=== PATIENT | female | born 1975 | race Caucasian/White ===

== ENCOUNTER → 2019-06-07 21:33 | Outpatient (CLI) | payer OTHER, SELFPAY ==
[2019-06-07 17:24] VITALS: BMI 26.3
[2019-06-07 21:37] LABS: Absolute Lymphocyte Count 2.67 X10^3/uL (0.83-4.51); Absolute Neutrophil Count 4.8 X10^3/uL (2.0-7.7); Basophil# 0.05 X10^3/uL; Basophil% 0.6 % (0-1); Eosinophil# 0.06 X10^3/uL; Eosinophils% 0.7 % (0-5); Hematocrit 41.5 % (37-47); Hemoglobin 13.8 g/dL (12.0-15.0); Lymphocyte # 2.67 X10^3/ul (4.0); Lymphocyte % 32.9 % (19-41); Mean Corp Hgb Conc 33.3 g/dL (32-36); Mean Corpuscular Hgb 31.3 pg (27.0-32.0); Mean Corpuscular Volume 94.1 fL (81-99); Monocyte# 0.48 X10^3/uL; Monocyte% 5.9 % (0-10); NRBC Flagged by Analyzer 0 % (0-5); Neutrophil # 4.83 X10^3/uL (2.7-7.7); Neutrophil % 59.7 % (47-70); Platelet Count 260 K/mm3 (150-450); RBC Distribution Width CV 12.5 % (11.6-14.6); RBC Distribution Width SD 43.2 fl (35.1-43.9); Red Blood Count 4.41 M/mm3 (4.2-5.4); White Blood Count 8.1 K/mm3 (4.4-11.0)
[2019-06-14 09:48] LABS: EBV Acute VCA IgM < 36.0 U/mL (0.0-35.9); EBV Early Antigen IgG <9.0 U/mL (0.0-8.9); EBV Nuclear Antigen IgG < 18.0 U/mL (0.0-17.9); EBV-VCA IgG > 600.0 U/mL (0.0-17.9)
== END ==
PROVIDERS: Referring Provider Nurse Practitioner; Visit Provider Nurse Practitioner
DX: J02.9 Acute pharyngitis, unspecified (principal); R53.83 Other fatigue
CPT/HCPCS: 85025; 86663; 86664; 86665

== ENCOUNTER → 2020-05-05 | Outpatient (CLI) | payer BC, SELFPAY ==
[2019-06-07 17:24] VITALS: BMI 26.3
[2020-05-05 21:23] LABS: Absolute Lymphocyte Count 2.24 X10^3/uL (0.83-4.51); Absolute Neutrophil Count 3.7 X10^3/uL (2.0-7.7); Basophil# 0.05 X10^3/uL; Basophil% 0.8 % (0-1); Eosinophil# 0.06 X10^3/uL; Eosinophils% 0.9 % (0-5); Hematocrit 44.3 % (37-47); Hemoglobin 14.5 g/dL (12.0-15.0); Lymphocyte # 2.24 X10^3/ul (4.0); Lymphocyte % 34.5 % (19-41); Mean Corp Hgb Conc 32.7 g/dL (32-36); Mean Corpuscular Hgb 30.5 pg (27.0-32.0); Mean Corpuscular Volume 93.3 fL (81-99); Mean Platelet Vol. 9.7 fl (6.2-12.0); Monocyte# 0.45 X10^3/uL; Monocyte% 6.9 % (0-10); NRBC Flagged by Analyzer 0 % (0-5); Neutrophil # 3.69 X10^3/uL (2.7-7.7); Neutrophil % 56.7 % (47-70); Platelet Count 280 K/mm3 (150-450); RBC Distribution Width CV 12.2 % (11.6-14.6); RBC Distribution Width SD 42.2 fl (35.1-43.9); Red Blood Count 4.75 M/mm3 (4.2-5.4); White Blood Count 6.5 K/mm3 (4.4-11.0)
[2020-05-05 21:52] LABS: AST(SGOT) 15 U/L (15-37); Alanine Aminotransfer ALT/SGPT 22 U/L (13-56); Albumin, Serum 3.9 g/dL (3.2-5.0); Alkaline Phosphatase 70 U/L (45-117); Anion Gap 3 (5-15); BUN 14 mg/dL (7-18); BUN/Creat Ratio 13.6 RATIO (10-20); Calcium,Total 9.1 mg/dL (8.5-10.1); Chloride 103 mmol/L (98-107); Cholesterol 297 mg/dL (200); Creatinine, Serum 1.03 mg/dL (0.55-1.02); EST Glomerular Filtration Rate 61 mL/min (>60); Est Glom Filt Rate - Afr Amer 74 mL/min (>60); Glucose 93 mg/dL (74-106); High Density Lipoprotein 92 mg/dL; Potassium 4.6 mmol/L (3.5-5.1); Protein, Total 7.9 g/dL (6.4-8.2); Sodium Level 134 mmol/L (136-145); Thyroid Stim Hormone (TSH) 1.84 uIU/mL (0.358-3.74); Triglycerides 124 mg/dL; Very Low Density Lipoprotein 25 mg/dL (5-40)
== END | disposition home or self-care (01) ==
PROVIDERS: Referring Provider Nurse Practitioner; Visit Provider Nurse Practitioner
DX: Z00.00 Encounter for general adult medical examination without abnormal findings (principal); L65.9 Nonscarring hair loss, unspecified
CPT/HCPCS: 80053; 80061; 84443; 85025

== ENCOUNTER → 2021-03-22 | Outpatient (CLI) | payer BC, SELFPAY ==
[2021-03-22 21:34] LABS: Absolute Lymphocyte Count 1.17 X10^3/uL (0.83-4.51); Absolute Neutrophil Count 1.8 X10^3/uL (2.0-7.7); Basophil# 0.03 X10^3/uL; Basophil% 0.8 % (0-1); Eosinophil# 0.02 X10^3/uL; Eosinophils% 0.6 % (0-5); Hematocrit 42.9 % (37-47); Hemoglobin 13.9 g/dL (12.0-15.0); Lymphocyte # 1.17 X10^3/ul (0.83-4.51); Lymphocyte % 33.1 % (19-41); Mean Corp Hgb Conc 32.4 g/dL (32-36); Mean Corpuscular Volume 92.7 fL (81-99); Mean Platelet Vol. 9.9 fl (6.2-12.0); Monocyte# 0.48 X10^3/uL; Monocyte% 13.6 % (0-10); NRBC Flagged by Analyzer 0 % (0-5); Neutrophil # 1.83 X10^3/uL (2.7-7.7); Neutrophil % 51.9 % (47-70); Platelet Count 225 K/mm3 (150-450); RBC Distribution Width CV 12.5 % (11.6-14.6); RBC Distribution Width SD 42.4 fl (35.1-43.9); Red Blood Count 4.63 M/mm3 (4.2-5.4); White Blood Count 3.5 K/mm3 (4.4-11.0)
[2021-03-22 21:48] LABS: ALB/GLOB Ratio 0.9 RATIO (0.9-2.4); AST(SGOT) 13 U/L (15-37); Alanine Aminotransfer ALT/SGPT 23 U/L (13-56); Albumin, Serum 3.7 g/dL (3.2-5.0); Alkaline Phosphatase 76 U/L (45-117); Anion Gap 5 (5-15); BUN 8 mg/dL (7-18); Calcium,Total 8.9 mg/dL (8.5-10.1); Chloride 104 mmol/L (98-107); Cholesterol 275 mg/dL (200); Creatinine, Serum 0.67 mg/dL (0.55-1.02); EST Glomerular Filtration Rate 101 mL/min (>60); Est Glom Filt Rate - Afr Amer 122 mL/min (>60); Glucose 94 mg/dL (74-106); High Density Lipoprotein 93 mg/dL; Potassium 4.4 mmol/L (3.5-5.1); Protein, Total 7.7 g/dL (6.4-8.2); Sodium Level 137 mmol/L (136-145); Triglycerides 93 mg/dL; Very Low Density Lipoprotein 19 mg/dL (5-40)
[2021-03-22 21:59] LABS: Hemoglobin A1c 5.1 % (3.8-5.6)
== END | disposition home or self-care (01) ==
PROVIDERS: Referring Provider Nurse Practitioner; Visit Provider Nurse Practitioner
DX: Z00.00 Encounter for general adult medical examination without abnormal findings (principal)
CPT/HCPCS: 80053; 80061; 83036; 85025

== ENCOUNTER → 2023-03-22 | Outpatient (CLI) | payer BC, SELFPAY ==
[2023-03-22 21:07] LABS: Absolute Lymphocyte Count 2.64 X10^3/uL (0.83-4.51); Absolute Neutrophil Count 6.3 X10^3/uL (2.0-7.7); Basophil# 0.05 X10^3/uL; Basophil% 0.5 % (0-1); Eosinophil# 0.04 X10^3/uL; Eosinophils% 0.4 % (0-5); Hematocrit 44.2 % (37-47); Hemoglobin 14.5 g/dL (12.0-15.0); Lymphocyte # 2.64 X10^3/ul (0.83-4.51); Lymphocyte % 27.3 % (19-41); Mean Corp Hgb Conc 32.8 g/dL (32-36); Mean Corpuscular Hgb 30.3 pg (27.0-32.0); Mean Corpuscular Volume 92.3 fL (81-99); Mean Platelet Vol. 10.1 fl (6.2-12.0); Monocyte# 0.59 X10^3/uL; Monocyte% 6.1 % (0-10); NRBC Flagged by Analyzer 0 % (0-5); Neutrophil # 6.33 X10^3/uL (2.7-7.7); Neutrophil % 65.4 % (47-70); Platelet Count 315 K/mm3 (150-450); RBC Distribution Width CV 12.4 % (11.6-14.6); RBC Distribution Width SD 42.7 fl (35.1-43.9); Red Blood Count 4.79 M/mm3 (4.2-5.4); White Blood Count 9.7 K/mm3 (4.4-11.0)
[2023-03-22 21:30] LABS: ALB/GLOB Ratio 0.9 RATIO (0.9-2.4); AST(SGOT) 12 U/L (15-37); Alanine Aminotransfer ALT/SGPT 20 U/L (13-56); Albumin, Serum 3.9 g/dL (3.2-5.0); Alkaline Phosphatase 71 U/L (45-117); Anion Gap 4 (5-15); BUN 11 mg/dL (7-18); BUN/Creat Ratio 14.6 RATIO (10-20); Calcium,Total 9.4 mg/dL (8.5-10.1); Chloride 102 mmol/L (98-107); Cholesterol 257 mg/dL (200); Creatinine, Serum 0.76 mg/dL (0.55-1.02); EST Glomerular Filtration Rate 87 mL/min (>60); Est Glom Filt Rate - Afr Amer 105 mL/min (>60); Globulin 4.3 g/dL (2.2-4.2); Glucose 85 mg/dL (74-106); High Density Lipoprotein 87 mg/dL; Potassium 4.3 mmol/L (3.5-5.1); Protein, Total 8.2 g/dL (6.4-8.2); Sodium Level 135 mmol/L (136-145); Thyroid Stim Hormone (TSH) 4.39 uIU/mL (0.358-3.74); Triglycerides 98 mg/dL; Very Low Density Lipoprotein 20 mg/dL (5-40)
[2023-03-24 14:10] LABS: EBV Acute VCA IgM < 36.0 U/mL (0.0-35.9); EBV Nuclear Antigen IgG < 18.0 U/mL (0.0-17.9); EBV-VCA IgG > 600.0 U/mL (0.0-17.9)
== END | disposition home or self-care (01) ==
PROVIDERS: Visit Provider Nurse Practitioner
DX: Z00.00 Encounter for general adult medical examination without abnormal findings (principal); B27.00 Gammaherpesviral mononucleosis without complication; E03.9 Hypothyroidism, unspecified
CPT/HCPCS: 80053; 80061; 84443; 85025; 86664; 86665

== ENCOUNTER → 2023-04-24 | Outpatient (CLI) | payer BC, SELFPAY ==
[2023-04-24 21:55] LABS: Thyroid Stim Hormone (TSH) 1.08 uIU/mL (0.358-3.74)
[2023-04-26 14:09] LABS: EBV Acute VCA IgM < 36.0 U/mL (0.0-35.9); EBV Nuclear Antigen IgG < 18.0 U/mL (0.0-17.9); EBV-VCA IgG > 600.0 U/mL (0.0-17.9)
== END | disposition home or self-care (01) ==
PROVIDERS: Visit Provider Nurse Practitioner
DX: B27.00 Gammaherpesviral mononucleosis without complication (principal); E03.9 Hypothyroidism, unspecified
CPT/HCPCS: 84443; 86664; 86665

== ENCOUNTER → 2024-03-26 | Outpatient (CLI) | payer BC, SELFPAY ==
[2024-03-26 22:20] LABS: Absolute Lymphocyte Count 2.38 X10^3/uL (0.83-4.51); Absolute Neutrophil Count 3.5 X10^3/uL (2.0-7.7); Basophil# 0.04 X10^3/uL; Basophil% 0.6 % (0-1); Eosinophil# 0.05 X10^3/uL; Eosinophils% 0.8 % (0-5); Hematocrit 41.3 % (37-47); Hemoglobin 13.7 g/dL (12.0-15.0); Lymphocyte # 2.38 X10^3/ul (0.83-4.51); Mean Corp Hgb Conc 33.2 g/dL (32-36); Mean Corpuscular Hgb 29.8 pg (27.0-32.0); Mean Platelet Vol. 10.5 fl (6.2-12.0); Monocyte# 0.43 X10^3/uL; Monocyte% 6.7 % (0-10); NRBC Flagged by Analyzer 0 % (0-5); Neutrophil # 3.53 X10^3/uL (2.7-7.7); Neutrophil % 54.7 % (47-70); Platelet Count 283 K/mm3 (150-450); RBC Distribution Width CV 12.7 % (11.6-14.6); RBC Distribution Width SD 42.1 fl (35.1-43.9); Red Blood Count 4.59 M/mm3 (4.2-5.4); White Blood Count 6.4 K/mm3 (4.4-11.0)
[2024-03-26 22:48] LABS: ALB/GLOB Ratio 0.9 RATIO (0.9-2.4); AST(SGOT) 14 U/L (15-37); Alanine Aminotransfer ALT/SGPT 20 U/L (13-56); Albumin, Serum 3.8 g/dL (3.2-5.0); Alkaline Phosphatase 69 U/L (45-117); Anion Gap 8 (5-15); BUN 20 mg/dL (7-18); BUN/Creat Ratio 27.7 RATIO (10-20); Calcium,Total 9.9 mg/dL (8.5-10.1); Chloride 104 mmol/L (98-107); Cholesterol 290 mg/dL (200); Creatinine, Serum 0.72 mg/dL (0.55-1.02); EST Glomerular Filtration Rate 91 mL/min (>60); Est Glom Filt Rate - Afr Amer 110 mL/min (>60); Globulin 4.3 g/dL (2.2-4.2); Glucose 95 mg/dL (74-106); High Density Lipoprotein 75 mg/dL; Potassium 4.1 mmol/L (3.5-5.1); Protein, Total 8.1 g/dL (6.4-8.2); Sodium Level 136 mmol/L (136-145); Triglycerides 140 mg/dL; Very Low Density Lipoprotein 28 mg/dL (5-40)
== END | disposition home or self-care (01) ==
PROVIDERS: Referring Provider Nurse Practitioner; Visit Provider Nurse Practitioner
DX: Z00.00 Encounter for general adult medical examination without abnormal findings (principal); E03.9 Hypothyroidism, unspecified
CPT/HCPCS: 80053; 80061; 84443; 85025

== ENCOUNTER → 2025-03-24 | Outpatient (CLI) | payer BC, SELFPAY ==
--- OUTSIDE RECORDS SUMMARY | 2025-03-24 22:25 | XMS RPT_ITS | CCD ---
Author Organization [facility] Care Team Providers Care Infectious Diseases Physician Name Role Phone Chad KESSLER.Ann LAM Primary Care Provide r YoanaBhavin serna DO Primary Care Provider [phone] Chad TEAM FACILITATOR, Ann Referring Unavailable Chad TEAM FACILITATOR, Ann Attending Unavailable Chad TEAM FACILITATOR, Ann Attending Unavailable AMBER DOWD Attending Unavailable YOANA, BHAVIN Primary Care Unavailable YEROPOLI, SEVASTI Attending Unavailable YOANA, BHAVIN Primary Care Unavailable YEROPOLI, SEVASTI Attending Unavailable YOANA, BHAVIN Primary Care Unavailable YOANA, BHAVIN Referring Unavailable YOANA, BHAVIN Primary Care Unavailable YOANA, BHAVIN Attending Unavailable PENELOPE, AMBER Attending Unavailable YOANA, BHAVIN Primary Care Unavailable Generic Provider MD, No Assigned Pcp Primary Car e Provider Unavailable HOWDESHELL, JD Referring Unavailable GENERIC PROVIDER, NO ASSIGNED PCP Primary Care Unavailable HOWDESHELL, JD Referring Unavailable GENERIC PROVIDER, NO ASSIGNED PCP Primary Care Unavailable HOWDESHELL, JD Referring Unavailable GENERIC PROVIDER, NO ASSIGNED PCP Primary Care Unavailable HOWDESHELL, JD Referring Unavailable GENERIC PROVIDER, NO ASSIGNED PCP Primary Care Unavailable HOWDESHELL, JD Referring Unavailable GENERIC PROVIDER, NO ASSIGNED PCP Primary Care Unavailable HOWDESHELL, JD Referring Unavailable GENERIC PROVIDER, NO ASSIGNED PCP Primary Care Unavailable Allergies Allergy Classification Reported Allergen(s) Allergy Type Date of Onset Reaction(s) Facility (1 source) ALLERGIES NOT ON FILE; Translations: [ALLERGIES NOT ON FILE] Propensity to adverse reactions (disorder) [facility] Medications Current Medications Medication Drug Class(es) Dates Sig (Normalized) Sig (Original) b complex vitamins capsule (20 sources) take 1 capsule by mo [facility] once daily b complex vitamins capsule Take 1 capsule by mouth daily. Active take 1 capsule by mouth once ramón ly b complex vitamins capsule Take 1 capsule by mouth daily. 0 Active chaste zhang extract (1 source) Start: 03-21-2018 chasteberry Active PO March 21, 2018 12:00am cholecalciferol 0.05 mg oral capsule (20 sources) Vitamin D cholecalciferol (Vitamin D-3) 50 MCG (2000 UT) capsule Take by mouth. Active Lactobacillus Combination No.8 (Adult Probiotic) 3 billion cell capsule (1 source) Start: 03-21-2018 take 3 capsules by mouth once daily Lactobacillus Combination No.8 (Adult Probiotic) 3 billion cell capsule Active 3000 MMU CELLS PO DAILY March 21, 2018 12:00am levothyroxine sodium 0.05 mg oral tablet (2 sources) l-Thyroxine Start: 03-23-2023 End: 04-25-2023 take 50 ug by mouth once daily Levothyroxine Active 50 MCG PO DAILY 90 April 25, 2023 10:12am Multivitamin preparation (1 source) Start: 03-21-2018 take 1 tablet by mouth once daily Multivitamin Active 1 TABLET PO DAILY March 21, 2018 12:00am Probiotic Product (PROBIOTIC DAILY PO) (20 sources) Probiotic Produc t (PROBIOTIC DAILY PO) Take by mouth. Active Probiotic Produc t (PROBIOTIC DAILY PO) Take by mouth. 0 Active progesterone 100 mg oral capsule (20 sources) Progesterone Start: 09-30-2024 take 2 capsules by mouth once daily progesterone (Prometrium) 100 MG capsule Indications: Abnormal uterine bleeding (AUB) Take 2 capsules (200 mg) by mouth daily. 60 capsule 2 09/30/2024 Active Start: 12-07-2023 End: 07-16-2024 take 2 capsules by mouth once daily progesterone (Prometrium) 100 MG capsule Indications: Abnormal uterine bleeding (AUB) Take 2 capsules (200 mg) by mouth daily. 60 capsule 3 12/07/2023 07/16/2024 Discontinued Start: 10-28-2023 End: 11-15-2023 take 2 capsules by mouth once daily progesterone (Prometrium) 100 MG capsule Indications: Abnormal uterine bleeding (AUB) Take 2 capsules (200 mg) by mouth daily. 30 capsule 3 11/15/2023 Active Start: 11-02-2022 End: 04-12-2023 take 2 tablets by mouth once daily progesterone (Prometrium) 100 MG capsule Indications: Abnormal uterine and vaginal bleeding, unspecified TAKE 2 TABLETS BY MOUTH DAILY 180 capsule 0 11/02/2022 11/09/2022 Discontinued (Reorder) Start: 05-09-2022 End: 11-15-2023 take 1 capsule by mouth once daily progesterone 200 MG capsule Indications: Abnormal uterine bleeding (AUB) Take 1 capsule (200 mg) by mouth daily. 90 capsule 3 11/09/2022 11/15/2023 Discontinued Vitamin B Complex (B Complex 1) tablet (1 source) Start: 03-21-2018 take 1 tablet by mouth once daily Vitamin B Complex (B Complex 1) tablet Active 1 TABLET PO DAILY March 21, 2018 12:00am Completed/Discontinued Medications Medication Drug Class(es) Dates Sig (Normalized) Sig (Original) amoxicillin 80 mg/ml oral suspension (2 sources) Penicillin-class Antibacterial Start: 03-21-2018 End: 03-23-2021 take 1000 mg by mouth twice daily Amoxicillin Discontinued 1000 MG PO TWICE A DAY 250 September 14, 2018 6:34pm March 23, 2021 12:57pm azithromycin 250 mg oral tablet (1 source) Macrolide Antimicrobial Start: 05-09-2022 End: 05-14-2022 Azithromycin Discontinued 250 MG PO daily 6 5 May 09, 2022 12:00am May 14, 2022 12:08am 2 po qd for 1 day then 1 po qd for 4 days with food or after eating cefdinir 50 mg/ml oral suspension (1 source) Cephalosporin Antibacterial Start: 06-07-2019 End: 03-23-2021 take 300 mg by mouth twice daily Cefdinir Discontinued 300 MG PO TWICE A DAY 120 June 07, 2019 1:00am March 23, 2021 12:57pm KELP ORAL (2 sources) KELP ORAL Take b y mouth. 0 Active Comment on above: Take by mouth. MULTI-VITAMIN ORAL (2 sources) MULTI-VITAMIN OR AL Take by mouth. 0 Active Comment on above: Take by mouth. Multiple Vitamin (MULTIVITAMIN ADULT PO) (20 sources) End: 11-27-2024 Multiple Vitamin (MULTIVITAMIN ADULT PO) Take by mouth. 11/27/2024 Discontinued (Therapy completed) Multiple Vitamin (MULTIVITAMIN ADULT PO) Take by mouth. Active Multiple Vitamin (MULTIVITAMIN ADULT PO) Take by mouth. 0 Active Vitamin B Complex (2 sources) VITAMIN B COMPLE X (B COMPLEX ORAL) Take by mouth. 0 Active Comment on above: Take by mouth. Problems Active Problems Problem Classification Problem Date Documented Date Episodic/Chronic Chronic obstructive pulmonary disease and bronchiectasis (1 source) Bronchitis; Translations: [Bronchitis, not specified as acute or chronic] 06-07-2019 Episodic Disorders of lipid metabolism (4 sources) Hypercholesterolemia; Translations: [Pure hypercholesterolemia, unspecified] Onset: 12-02-2024 12-02-2024 Chronic Fracture of lower limb (6 sources) Stress fracture of left tibia; Translations: [Stress fracture, left tibia, initial encounter for fracture] Onset: 11-27-2024 11-22-2023 Episodic Malaise and fatigue (1 source) Fatigue; Translations: [Chronic fatigue, unspecified] 12-13-2023 Chronic Malaise and fatigue (1 source) Fatigue; Translations: [Other fatigue] 06-07-2019 Episodic Menopausal disorders (3 sources) Perimenopausal state; Translations: [Menopausal and female climacteric states] Onset: 12-02-2024 12-02-2024 Chronic Nutritional deficiencies (1 source) Vitamin D deficiency; Translations: [Vitamin D deficiency, unspecified] 11-22-2023 Chronic Other female genital disorders (6 sources) Abnormal uterine bleeding; Translations: [Abnormal uterine and vaginal bleeding, unspecified] Onset: 11-27-2024 Chronic Other female genital disorders (1 source) Abnormal uterine and vaginal bleeding, unspecified; Translations: [Abnormal uterine and vaginal bleeding, unspecified] Onset: 11-27-2024 Chronic Other non-traumatic joint disorders (3 sources) Acute ankle pain; Translations: [Pain in left ankle and joints of left foot] 11-22-2023 Episodic Other screening for suspected conditions (not mental disorders or infectious disease) (17 sources) Mammography abnormal; Translations: [Other abnormal and inconclusive findings on diagnostic imaging of breast] Onset: 11-27-2024 Episodic Other upper respiratory infections (1 source) Maxillary sinusitis; Translations: [Chronic maxillary sinusitis] 03-21-2018 Chronic Other upper respiratory infections (2 sources) Acute ethmoidal sinusitis; Translations: [Acute ethmoidal sinusitis, unspecified] 06-07-2019 Episodic Otitis media and related conditions (1 source) Acute left otitis media; Translations: [Otitis media, unspecified, left ear] 03-21-2018 Episodic Thyroid disorders (7 sources) Hypothyroidism; Translations: [Hypothyroidism, unspecified] Onset: 12-22-2023 04-25-2023 Chronic Unclassified (1 source) Low back pain, unspecified; Translations: [Low back pain, unspecified] Onset: 04-13-2022 Unclassified (2 sources) Patient encounter status 11-27-2024 Past or Other Problems Problem Classification Problem Date Documented Date Episodic/Chronic Abdominal pain (2 sources) Right lower quadrant pain; Translations: [Right lower quadrant pain] Onset: 06-20-2016 06-20-2016 Episodic Lymphadenitis (6 sources) Anterior cervical lymphadenopathy; Translations: [Localized enlarged lymph nodes] Onset: 12-22-2023 12-13-2023 Episodic Other connective tissue disease (2 sources) Pain in lower limb; Translations: [Leg Pain] Onset: 01-12-2024 Episodic Unclassified (1 source) knee cap fx 02-28-2022 Unclassified (1 source) problems with irrelar menses for the past year, 02-28-2022 Viral infection (2 sources) Heterophil-positive mononucleosis syndrome; Translations: [Gammaherpesviral mononucleosis without complication] Onset: 04-28-2023 03-22-2023 Episodic Results Test Name Value Interpretation Reference Range Facility BI TRANSFER OF OUTSIDE FILMS on 02-06-2025 BI TRANSFER OF OUTSIDE FILMS Outside images for comparison or treatment purposes, not interpreted by Radiologists. [facility] Comment on above: Order Comment: 2022 [facility] BREAST [facility]TD [place] BI TRANSFER OF OUTSIDE FILMS Outside images for comparison or treatment purposes, not interpreted by Radiologists. [facility] Comment on above: Order Comment: 2022 [facility] DIAG [place] BI TRANSFER OF OUTSIDE FILMS Outside images for comparison or treatment purposes, not interpreted by Radiologists. [facility] Comment on above: Order Comment: 06/14 US BREAST LTD RT [place] BI TRANSFER OF OUTSIDE FILMS Outside images for comparison or treatment purposes, not interpreted by Radiologists. [facility] Comment on above: Order Comment: 2021 US BREAST LTD RT [place] BI TRANSFER OF OUTSIDE FILMS Outside images for comparison or treatment purposes, not interpreted by Radiologists. Normal [facility] Comment on above: Order Comment: 2021 [facility] Study Interpretation of outs joselyn studyon 02-06-2025 Outside images for comparison or treatment purposes, not interpreted by Radiologists. IMAGING Outside images for comparison or treatment purposes, not interpreted by Radiologists. IMAGING Outside images for comparison or treatment purposes, not interpreted by Radiologists. IMAGING Outside images for comparison or treatment purposes, not interpreted by Radiologists. IMAGING Outside images for comparison or treatment purposes, not interpreted by Radiologists. IMAGING BI MAMMO BILATERAL SCREENING TOMOSYNTHESISon 01-29-2025 BI MAMMO BILATERAL SCREENING TOMOSYNTHESIS Interpreted By: Alex Holloway, STUDY: BI MAMMO BILATERAL SCREENING TOMOSYNTHESIS; 01/29/2025 9:37 am ACCESSION NUMBER(S): [id number] ORDERING CLINICIAN: INTERFACE UNSPECIFIELDPROVIDER INDICATION: Screening. ,Z12.31 Encounter for screening mammogram for malignant neoplasm of breast COMPARISON: 01/24/2023 and 11/16/2021 FINDINGS: 2D and tomosynthesis images were reviewed at 1 mm slice thickness. Density: The breasts are heterogeneously dense, which may obscure small masses. Bilateral benign circumscribed masses are seen. No suspicious masses or calcifications are identified. IMPRESSION: No mammographic evidence of malignancy. BI-RADS CATEGORY: BI-RADS Category: 2 Benign. Recommendation: Annual Screening. Recommended Date: 1 Year. Laterality: Bilateral. For any future breast imaging appointments, please call [phone] ([phone]). MACRO: None Signed by: Alex Holloway 02/06/2025 4:31 PM Dictation workstation: [id number] [facility] 37on 12-02-2024 37 [facility] Office Visiton 11-27-2024 Follow-up visit [id number] Dana Kamara 1975 F Date Provider Department Center 11/27/2024 [id number] DEE [facility] Offi Family History Problem Relation Age of Onset No Known Problems Father Hypertension Mother Arthritis Mother Rheumatologic disease Mother Arthritis Sister Family Status - Relation Status Age at Father Alive Mother Alive Sister Level of Service:25096 NE PERIODIC PREVENTIVE MED EST PATIENT 40-64YRS Reason for Visit and Comments: Annual Exam [83] Normal [facility] Progress Noteon 11-27-2024 Progress Note ?A rate supervisor was offered to be present during her exam. The patient: Declined. Normal [facility] Progress Note Cadence Kamara 11/27/2024 49 y.o. Primary Care Physician: Bhavin Rossi DO Chief Complaint Patient presents with Annual Exam HPI : Cadence Kamara is a 49 y.o. female here for annual exam Was diagnosed with hypothyroid. 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 Had side effects and stopped it. Repeat labs normal CBC and CMP HgbA1c normal 02/2024 Lipids elevated 02/2024, had just started Keto. LDL was 187 _ Gynecologic History: Patient's last menstrual period was 11/20/2024 (exact date). Taking Prometrium 200 mg 21 days on and 7 days off. Menses spacing out In the last 6 months: February, June, July, October Sometimes heavy and sometime light Cramping Pap last year with endometrial cells, US ordered but was not done See WANTED [employer] message for other sx: - weight loss with keto diet and now weight gain. - hot flashes and night sweats - fatigue - stress fracture ( atraumatic) of tibia, still healing ( would like DEXA) - knee and shoulder pain - brain fog, - anxiety/emotional - poor sleep EMB 2020 ENDOMETRIAL BIOPSY - FRAGMENTS OF SECRETORY ENDOMETRIUM NEGATIVE FOR HYPERPLASIA OR MALIGNANCY Contraception: Condoms OB History Para Term AB Living 3 3 2 1 3 SAB IAB Ectopic Multiple Live Births 3 # Outcome Date GA Lbr Matthew/2nd Weight Sex Type Anes PTL Lv 3 Term Vag-Spont YESSENIA 2 Term Vag-Spont YESSENIA 1 Vag-Spont YESSENIA Preventative Health Testing: Date of Last Pap Smear: 07/2020 neg pap and HPV Abnormal Pap Smear History: none Date of Last Mammogram: Hx of abnormal- declines continued diagnostic imaging due to cost Would like screening Date of Last Colonoscopy: none- ok with referral __ Past Medical History: Diagnosis Date Abnormal Pap smear of cervix October 2023. Have ultrasound 12/26 Hypothyroidism Past Surgical History: Procedure Laterality Date FRACTURE SURGERY Fractured knee cap 03/2004 KNEE SURGERY Right x 2 Family History Problem Relation Name Age of Onset No Known Problems Father Hypertension Mother Rosi Castañeda Arthritis Mother Rosi Castañeda Rheumatologic disease Mother Rosi Castañeda Arthritis Sister Neema Galindo Social History Socioeconomic History Marital status: Spouse name: Not on file Number of children: Not on file Years of education: Not on file Highest education level: Not on file Occupational History Not on file Tobacco Use Smoking status: Never Smokeless tobacco: Never Vaping Use Vaping status: Never Used Substance and Sexual Activity Alcohol use: Not Currently Alcohol/week: 1.0 standard drink of alcohol Types: 1 Standard drinks or equivalent per week Drug use: No Sexual activity: Yes Partners: Male control/protection: Condom Male Other Topics Concern Not on file Social History Narrative Not on file Social Drivers of Health Financial Resource Strain: Low Risk (12/13/2023) Overall Financial Resource Strain (CARDIA) Difficulty of Paying Living Expenses: Not hard at all Food Insecurity: No Food Insecurity (12/13/2023) Hunger Vital Sign Worried About Running Out of Food in the Last Year: Never true Ran Out of Food in the Last Year: Never true Transportation Needs: No Transportation Needs (12/13/2023) PRAPARE - Transportation Lack of Transportation (Medical): No Lack of Transportation (Non-Medical): No Physical Activity: Sufficiently Active (12/13/2023) Exercise Vital Sign Days of Exercise per Week: 5 days Minutes of Exercise per Session: 30 min Stress: Stress Concern Present (12/13/2023) [place] [employer] - Occupational Stress Questionnaire Feeling of Stress : To some extent Social Connections: Moderately Integrated (12/13/2023) Social Connection and Isolation Panel [NHANES] Frequency of Communication with Friends and Family: Three times a week Frequency of Social Gatherings with Friends and Family: Twice a week Attends Bahai Services: More than 4 times per year Active Member of Clubs or Organizations: No Attends Club or Organization Meetings: Never Marital Status: Intimate Partner Violence: Not At Risk (12/13/2023) Humiliation, Afraid, Rape, and Kick questionnaire Fear of Current or Ex-Partner: No Emotionally Abused: No Physically Abused: No Sexually Abused: No Housing Stability: Unknown (12/13/2023) Housing Stability Vital Sign Unable to Pay for Housing in the Last Year: No Number of Places Lived in the Last Year: Not on file Unstable Housing in the Last Year: No MEDICATIONS: Current Outpatient Medications Medication Sig Dispense Refill b complex vitamins capsule Take 1 capsule by mouth daily. cholecalciferol (Vitamin D-3) 50 MCG (2000 UT) capsule Take by mouth. Probiotic Product (PROBIOTIC DAILY PO) Take by mouth. progesterone (Prometrium) 100 MG capsule Take 2 capsules (200 mg) by mouth elissa (more content not included)... Normal [facility] 36on 08-26-2024 36 Noted. Normal [place] [address]on 08-08-2024 36 We have been unable to reach your patient to schedule their testing. Test Name: US Neck 1st Attempt: 1st attempt, via WUT, 07/02/24-BD 2nd Attempt: 2nd attempt - called and LVM - TE to office - 08/08/24 AAD Normal [facility] 36on 07-15-2024 36 Last visit 10/2023. R x pended. Normal [facility] CBC W/Diff, Automatedon 08- Absolute Lymph 2.38 X10 3/uL Normal 0.83-4.51 [facility] Comment on above: Performed By: #### L 500.4100, L100.0100, L501.9520, L500.4050 #### [facility] [address] [place], [address] Absolute Neut 3.5 X10 3/uL Normal 2.0-7.7 [facility] Comment on above: Performed By: #### L 500.4100, L100.0100, L501.9520, L500.4050 #### [facility] [address] [place], [address] Basophils/100 WBC (Bld) 0.6 % Normal 0-1 [facility] Comment on above: Performed By: #### L 500.4100, L100.0100, L501.9520, L500.4050 #### [facility] [address] [place], [address] Eosinophils/100 WBC (Bld) 0.8 % Normal 0-5 [facility] Comment on above: Performed By: #### L 500.4100, L100.0100, L501.9520, L500.4050 #### [facility] [address] [place], [address] Erythrocyte distribution width (RBC) [Ratio] 12.7 % Normal 11.6-14.6 [facility] Comment on above: Performed By: #### L 500.4100, L100.0100, L501.9520, L500.4050 #### [facility] [address] [place], [address] Hematocrit (Bld) [Volume fraction] 41.3 % Normal 37-47 [facility] Comment on above: Performed By: #### L 500.4100, L100.0100, L501.9520, L500.4050 #### [facility] [address] [place], [address] Hemoglobin (Bld) [Mass/Vol] 13.7 g/dL Normal 12.0-15.0 [facility] Comment on above: Performed By: #### L 500.4100, L100.0100, L501.9520, L500.4050 #### [facility] [address] [place], [address] IG% 0.200 Normal 0.0-0.9 [facility] Comment on above: Result Comment: IG% - Immature Granulocytes (promyelocytes, myelocytes and metamyelocytes) > 1% indicates that a LEFT SHIFT is Present. Performed By: #### L 500.4100, L100.0100, L501.9520, L500.4050 #### [facility] [address] [place], [address] Lymphocytes/100 WBC (Bld) 37.0 % Normal 19-41 [facility] Comment on above: Performed By: #### L 500.4100, L100.0100, L501.9520, L500.4050 #### [facility] [address] [place], [address] MCH (RBC) [Entitic mass] 29.8 pg Normal 27.0-32.0 [facility] Comment on above: Performed By: #### L 500.4100, L100.0100, L501.9520, L500.4050 #### [facility] [address] [place], [address] MCHC (RBC) [Mass/Vol] 33.2 g/dL Normal 32-36 [facility] Comment on above: Performed By: #### L 500.4100, L100.0100, L501.9520, L500.4050 #### [facility] [address] [place], [address] MCV (RBC) [Entitic vol] 90.0 fL Normal 81-99 [facility] Comment on above: Performed By: #### L 500.4100, L100.0100, L501.9520, L500.4050 #### [facility] [address] [place], [address] Monocytes/100 WBC (Bld) 6.7 % Normal 0-10 [facility] Comment on above: Performed By: #### L 500.4100, L100.0100, [id number], L500.4050 #### [facility] [address] [place], [address] Neutrophils/100 WBC (Bld) 54.7 % Normal 47-70 [facility] Comment on above: Performed By: #### L 500.4100, L100.0100, [id number], L500.4050 #### [facility] [address] [place], [address] Nucleated RBC (Bld) [#/Vol] 0 10*3/uL Normal 0-5 [facility] Comment on above: Performed By: #### L 500.4100, L100.0100, L501.9520, L500.4050 #### [facility] [address] [place], [address] Platelet mean volume (Bld) [Entitic vol] 10.5 fL Normal 6.2-12.0 [facility] Comment on above: Performed By: #### L 500.4100, L100.0100, L501.9520, L500.4050 #### [facility] [address] [place], [address] Platelets (Bld) [#/Vol] 283 10*3/uL Normal 150-450 [facility] Comment on above: Performed By: #### L 500.4100, L100.0100, L501.9520, L500.4050 #### [facility] [address] [place], [address] RBC (Bld) [#/Vol] 4.59 10*6/uL Normal 4.2-5.4 [facility] Comment on above: Performed By: #### L 500.4100, L100.0100, L501.9520, L500.4050 #### [facility] [address] [place], [address] RDW SD 42.1 fl Normal 35.1-43.9 [facility] Comment on above: Performed By: #### L 500.4100, L100.0100, L501.9520, L500.4050 #### [facility] [address] [place], [address] WBC (Bld) [#/Vol] 6.4 10*3/uL Normal 4.4-11.0 [facility] Comment on above: Performed By: #### L 500.4100, L100.0100, L501.9520, L500.4050 #### [facility] [address] [place], [address] Comprehensive Metabolic Prof mdon 03-26-2024 Albumin [Mass/Vol] 3.8 g/dL Normal 3.2-5.0 [facility] Comment on above: Performed By: #### L 500.4100, L100.0100, L501.9520, L500.4050 #### [facility] [address] [place], [address] Albumin/Globulin [Mass ratio] 0.9 {ratio} Normal 0.9-2.4 [facility] Comment on above: Performed By: #### L 500.4100, L100.0100, L501.9520, L500.4050 #### [facility] [address] [place], [address] ALK P 69 U/L Normal 45-117 [facility] Comment on above: Performed By: #### L 500.4100, L100.0100, [id number], L500.4050 #### [facility] [address] [place], [address] ALT [Catalytic activity/Vol] 20 U/L Normal 13-56 [facility] Comment on above: Performed By: #### L 500.4100, L100.0100, [id number], L500.4050 #### [facility] [address] [place], [address] AST [Catalytic activity/Vol] 14 U/L Low 15-37 [facility] Comment on above: Performed By: #### L 500.4100, L100.0100, [id number], L500.4050 #### [facility] [address] [place], [address] Bilirubin [Mass/Vol] 0.40 mg/dL Normal 0.20-1.00 [facility] Comment on above: Result Comment: For patients on eltrombopag therapy, use of [employer] TBIL is not recommended. Performed By: #### L 500.4100, L100.0100, L501.9520, L500.4050 #### [facility] [address] [place], [address] BUN/CRE 27.7 RATIO High 10-20 [facility] Comment on above: Performed By: #### L 500.4100, L100.0100, L501.9520, L500.4050 #### [facility] [address] [place], [address] CA,Total 9.9 mg/dL Normal 8.5-10.1 [facility] Comment on above: Performed By: #### L 500.4100, L100.0100, L501.9520, L500.4050 #### [facility] [address] [place], [address] Chloride [Moles/Vol] 104 mmol/L Normal 98-107 [facility] Comment on above: Performed By: #### L 500.4100, L100.0100, L501.9520, L500.4050 #### [facility] [address] [place], [address] CO2 [Moles/Vol] 24.0 mmol/L Normal 21.0-32.0 [facility] Comment on above: Performed By: #### L 500.4100, L100.0100, L501.9520, L500.4050 #### [facility] [address] [place], [address] Creatinine [Mass/Vol] 0.72 mg/dL Normal 0.55-1.02 [facility] Comment on above: Result Comment: The validity of the calculated GFR GFRAA in patients over 70 years has not been determined. Clinical correlation is essential. Performed By: #### L 500.4100, L100.0100, L501.9520, L500.4050 #### [facility] [address] [place], [address] EST GFR - AA 110 mL/min Normal >60 [facility] Comment on above: Result Comment: Afri can Andorran GFR Calc Performed By: #### L 500.4100, L100.0100, L501.9520, L500.4050 #### [facility] [address] [place], [address] GAP 8 Normal 5-15 [facility] Comment on above: Performed By: #### L 500.4100, L100.0100, L501.9520, L500.4050 #### [facility] [address] [place], [address] GFR/1.73 sq M.predicted among non-blacks MDRD (S/P/Bld) [Vol rate/Area] 91 mL/min/{1.73_m2} Normal >60 [facility] Comment on above: Result Comment: Non- GFR Calc Performed By: #### L 500.4100, L100.0100, L501.9520, L500.4050 #### [facility] [address] [place], [address] Globulin (S) [Mass/Vol] 4.3 g/dL High 2.2-4.2 [facility] Comment on above: Performed By: #### L 500.4100, L100.0100, L501.9520, L500.4050 #### [facility] [address] [place], [address] Glucose [Mass/Vol] 95 mg/dL Normal 74-106 [facility] Comment on above: Performed By: #### L 500.4100, L100.0100, L501.9520, L500.4050 #### [facility] [address] [place], [address] Potassium [Moles/Vol] 4.1 mmol/L Normal 3.5-5.1 [facility] Comment on above: Performed By: #### L 500.4100, L100.0100, L501.9520, L500.4050 #### [facility] [address] [place], [address] Sodium [Moles/Vol] 136 mmol/L Normal 136-145 [facility] Comment on above: Performed By: #### L 500.4100, L100.0100, L501.9520, L500.4050 #### [facility] [address] [place], [address] T PROT 8.1 g/dL Normal 6.4-8.2 [facility] Comment on above: Performed By: #### L 500.4100, L100.0100, L501.9520, L500.4050 #### [facility] [address] [place], [address] Urea nitrogen [Mass/Vol] 20 mg/dL High 7-18 [facility] Comment on above: Performed By: #### L 500.4100, L100.0100, L501.9520, L500.4050 #### [facility] [address] [place], [address] Lipid Profileon 03-26-2024 Cholesterol [Mass/Vol] 290 mg/dL High 200 [facility] Comment on above: Result Comment: <200 mg/dL Desirable 200-240 mg/dL Borderline >240 mg/dL High Risk Performed By: #### L 500.4100, L100.0100, L501.9520, L500.4050 #### [facility] [address] [place], [address] Cholesterol in HDL [Mass/Vol] 75 mg/dL Normal [facility] Comment on above: Result Comment: The drugs N-Acetylcysteine and Metamizole may falsely depress this assay. Reference Range HDL <40 mg/dL Low HDL Cholesterol HDL >or= 60 mg/dL High HDL Cholesterol Performed By: #### L 500.4100, L100.0100, L501.9520, L500.4050 #### [facility] [address] [place], [address] Cholesterol in LDL [Mass/Vol] 187 mg/dL High 0-130 [facility] Comment on above: Performed By: #### L 500.4100, L100.0100, L501.9520, L500.4050 #### [facility] [address] [place], [address] Cholesterol in VLDL [Mass/Vol] 28 mg/dL Normal 5-40 [facility] Comment on above: Performed By: #### L 500.4100, L100.0100, L501.9520, L500.4050 #### [facility] [address] [place], [address] Triglyceride [Mass/Vol] 140 mg/dL Normal [facility] Comment on above: Result Comment: The drugs N-Acetylcysteine and Metamizole may falsely depress this assay. Serum Triglycerides Reference Interval Normal <150 mg/dL Borderline high 150 - 199 mg/dL High 200 - 499 mg/dL Very High > or = 500 mg/dL Performed By: #### L 500.4100, L100.0100, L501.9520, L500.4050 #### [facility] [address] [place], [address] Thyroid Stim Hormone (TSH)on 03-26-2024 TSH 1.780 uIU/mL Normal 0.358-3.740 [facility] Comment on above: Performed By: #### L 500.4100, L100.0100, L501.9510, L500.4054 #### [facility] [address] [place], [address] 36on 01-17-2024 36 Screening/Surveillan ce Program- Cologuard Called patient to offer Cologuard Sent my chart message to call colorectal office at [phone] Normal [facility] Office Visiton 01-12-2024 Follow-up visit [id number] Dana Kamara 1975 F Date Provider Department Center [facility]20[id number] Family History Problem Relation Age of Onset No Known Problems Father Hypertension Mother Arthritis Mother Rheumatologic disease Mother Arthritis Sister Family Status - Relation Status Age at Father Alive Mother Alive Sister Level of Service:38850 [place] OFFICE/OUTPATIENT ESTABLISHED LOW MDM 20 MIN Reason for Visit and Comments: Leg Pain [414418] - left Follow-up [197156] Normal [facility] Progress Noteon 01-12-2024 Progress Note [facility] [address] [place] [address] Dept: [phone] Dept Chief Complaint Patient presents with Leg Pain left Follow-up Subjective History of Present Illness: Cadence Kamara follows up today for left leg pain. Since the last visit on 12/22/2023, symptoms are improving, 50% better. Current symptoms are aching, shooting, and stabbing. She rates symptoms as a 0/10 at rest and a 7/10 at worst. Imaging to date: X-ray October 2023 Treatment to date: PT/OT/HEP: no Ice: yes, helpful Heat: no Medications: Tylenol: no NSAIDs: yes, Aleve/Naproxen, helpful Oral steroids: no Muscle relaxants: no Nerve medications: no Targeted injections: none Assistive devices: none Fall risk assessment: Less than 65, not applicable Objective There were no vitals taken for this visit. Physical Exam: General: Alert, well appearing, no acute distress. Respiratory: Breathing comfortably on room air. No respiratory distress. Skin: Warm, dry, intact. No visible rashes or erythema overlying area of focused exam. Physical Exam Musculoskeletal: Left lower leg: Tenderness (Distal medial one third tibia, positive fulcrum) present. No swelling. Legs: Comments: Denies pain with heel percussion External Notes No pertinent interval updates Labs Lab Results Component Value Date HGBA1C 5.1 07/16/2019 No results found for: CREATININE Imaging I have personally reviewed the images pertinent to the appointment today EMG/NCT N/A Procedure No procedures completed today Assessment Diagnosis Plan 1. Stress fracture of left tibia with delayed healing, subsequent encounter Plan Continue with low impact activities and relative rest out of the walking boot until 80% reduction in all of her symptoms. At that time we discussed gradually initiating an every other day walking program including 20 minutes of sustained walking at a normal pace with a day off in between pounding days. 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 This is more complicated due to her possible secondary issue of the stress fracture as well as diagnostically by the addition of the supplementation thyroid medication [id number] that sounds like to have been some form of a desiccated thyroid. I will see her back shortly after reintroducing the pounding program of every other day 20 minutes sustained walking. No follow-ups on file. Amber Dowd MD 01/12/2024 9:17 AM Please note that portions of this note may have been completed with voice recognition software. Documentation reviewed prior to signing but minor errors in activity therapist may have occurred. Normal [facility] THYROIDon 12-24-2023 THYROID [facility] Name[facility] 1975 [id number] Exam Date/Time: 12/22/2023 09:57 Procedure: US THYROID Ordering Provider: ROSSI BRITTANY Reason For Exam: LYMPHADENOPATHY ULTRASOUND THYROID: CLINICAL INDICATION: Lymphadenopathy, hypothyroidism TECHNIQUE: Ultrasonographic evaluation of the thyroid COMPARISON: None FINDINGS: RIGHT LOBE: 1.0 x 1.7 x 3.7 cm. Homogeneous echogenicity. No suspicious nodule. LEFT LOBE: 0.9 x 1.2 x 3 point cm. Homogeneous echogenicity. No suspicious nodule. Isthmus: 1 mm in AP diameter. Cervical lymph nodes: Ovoid right level two lymph node measuring 0.5 cm in short axis diameter. IMPRESSION: 1. Normal appearance of the thyroid. 2. Right level two lymph node, subcentimeter in short axis diameter, nonspecific but may be reactive. *TI-RADS (2017) Reference: Ja Enciso. ACR Thyroid Imaging, Reporting and Data System (TI-RADS): White Paper of the ACR TI-RADS Committee. J Am [employer]. October 2016. Please note: There are other existing guidelines to classify thyroid nodules to determine need for FNA and this decision will be deferred to the ordering physician. Thyroid nodule details (add points for total score): Composition(points): 1 - mixed cystic and solid 2 - solid Echogenicity: 1 - hyperechoic or isoechoic 2 - hypoechoic 3 - very hypoechoic Shape: 3 - taller than wide Margin: 2 - lobulated or irregular 3 - extrathyroidal extension Echogenic foci: 1 - macrocalcifications 2 - rim calcification 3 - microcalcifications Risk for malignancy: TI-RADS 1 - 0 points - (benign) <2% risk TI-RADS 2 - 2 points - (not suspicious) <5% TI-RADS 3 - 3 points - (mildly suspicious) <5% - FNA when >/= 2.5cm. Follow when >1.5cm at 1, 3 and 5 years TI-RADS 4 - 4-6 points - (moderately suspicious) 5-20% - FNA when >/= 1.5cm. Follow when >1cm at 1, 2, 3 and 5 years TI-RADS 5 - 7+ points - (highly suspicious) >20% - FNA when >/= 1cm. Follow when >0.5cm every year for up to 5 years Notes: 1. There are other existing guidelines to classify thyroid nodules to determine need for FNA; and this decision will be deferred to the ordering physician. 2. Nodule vascularity is no longer considered a useful characteristic to assess risk for malignancy. 3. Score and follow a maximum of four nodules 4. Significant growth is increase in two dimensions each by 20% 5. Follow up scanning of less than 1yr is not warranted 6. FNA biopsy of no more than two nodules with highest TI-RADS levels Report Dictated on Electronically Signed By: Kevin Pruitt MD Electronically Signed Date/Time: 12/24/2023 1:54 PM EDT Normal [facility] Office Visiton 12-22-2023 Follow-up visit [id number] Dana Kamara 1975 F Date Provider Department Center 12/22/2023 [id number][facility] None Family History Problem Relation Age of Onset No Known Problems Father Hypertension Mother Arthritis Mother Rheumatologic disease Mother Arthritis Sister Family Status - Relation Status Age at Father Alive Mother Alive Sister Level of Service:54535 [place] OFFICE/OUTPATIENT ESTABLISHED LOW MDM 20 MIN Reason for Visit and Comments: Follow-up [968485] Normal [facility] Progress Noteon 12-22-2023 Progress Note [facility] [address] [place] [address] Dept: [phone] Dept Chief Complaint Patient presents with Follow-up Subjective History of Present Illness: Cadence Kamara follows up today for left ankle pain. Since the last visit on 11/22/2023, symptoms are unchanged. Current symptoms are burning pain that progresses as day progresses. She rates symptoms as a 0/10 at rest and a 7/10 at worst. Imaging to date: X-ray October 2023 Nondiagnostic, small inferior calcaneal spur Treatment to date: PT/OT/HEP: no Ice: Yes, helpful Heat: no Medications: Tylenol: no NSAIDs: No Oral steroids: no Muscle relaxants: no Nerve medications: no Targeted injections: none Assistive devices: Boot. 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 Patient's initial TSH at over 5 was treated at home initially by the patient with desiccated thyroid. She then had a follow-up TSH that was at 2.8 and a thyroid nodule was palpated so is currently being worked up. Despite normal T3 and T4 levels her stress fracture without significant overuse could be a symptom of hypothyroidism. Patient states that she did not mention to her PCP that she was taking desiccated thyroid for short period of time. Currently her lower one third medial tibial symptoms are not significantly resolved. Objective There were no vitals taken for this visit. Physical Exam: General: Alert, well appearing, no acute distress. Respiratory: Breathing comfortably on room air. No respiratory distress. Skin: Warm, dry, intact. No visible rashes or erythema overlying area of focused exam. Physical Exam Musculoskeletal: Left lower leg: Tenderness (Distal medial one third tibia, positive fulcrum) present. No swelling. Legs: Comments: Denies pain with heel percussion External Notes No pertinent interval updates Labs Lab Results Component Value Date HGBA1C 5.1 07/16/2019 No results found for: CREATININE Imaging I have personally reviewed the images pertinent to the appointment today EMG/NCT N/A Procedure No procedures completed today Assessment Diagnosis Plan 1. Stress fracture of left tibia with delayed healing, subsequent encounter Plan Patient is still having some discomfort over her distal one third medial tibia consistent with her stress fracture. We will continue to offload her leg as frequently as possible without progressing to crutches or cane as we do not want to lose significant muscle mass in the process. She may have an underlying contributing factor with her current thyroid status I anticipate this could slow her recovery but not prevent it from healing. I will plan on seeing her back in 3 weeks. No follow-ups on file. Amber Dowd MD 12/22/2023 3:47 PM Please note that portions of this note may have been completed with voice recognition software. Documentation reviewed prior to signing but minor errors in activity therapist may have occurred. Normal [facility] CBC W Auto Differential pane l (Bld)on 12-14-2023 Basophils (Bld) [#/Vol] 38 10*3/uL [facility] Basophils/100 WBC (Bld) 0.5 % [facility] Eosinophils (Bld) [#/Vol] 38 10*3/uL [facility] Eosinophils/100 WBC (Bld) 0.5 % [facility] Erythrocyte distribution width (RBC) [Ratio] 12.5 % 11.0 - 15.0 % [facility] Hematocrit (Bld) [Volume fraction] 41.8 % 35.0 - 45.0 % [facility] Hemoglobin (Bld) [Mass/Vol] 14.3 g/dL 11.7 - 15.5 g/dL [facility] Lymphocytes (Bld) [#/Vol] 2288 10*3/uL [facility] Lymphocytes/100 WBC (Bld) 30.5 % [facility] MCH (RBC) [Entitic mass] 31.2 pg 27.0 - 33.0 pg [facility] MCHC (RBC) [Mass/Vol] 34.2 g/dL 32.0 - 36.0 g/dL [facility] MCV (RBC) [Entitic vol] 91.1 fL 80.0 - 100.0 fL [facility] Monocytes (Bld) [#/Vol] 428 10*3/uL [facility] Monocytes/100 WBC (Bld) 5.7 % [facility] Neutrophils (Bld) [#/Vol] 4710 10*3/uL [facility] Neutrophils/100 WBC (Bld) 62.8 % [facility] Platelet mean volume (Bld) [Entitic vol] 9.7 fL 7.5 - 12.5 fL [facility] Platelets (Bld) [#/Vol] 330 10*3/uL [facility] RBC (Bld) [#/Vol] 4.59 10*6/uL [facility] WBC (Bld) [#/Vol] 7.5 10*3/uL [facility] Iron and Iron binding capaci ty panelon 12-14-2023 Iron [Mass/Vol] 110 ug/dL [facility] lth Iron binding capacity [Mass/Vol] 318 [facility] Iron saturation [Mass fraction] 35 [facility] No Panel Informationon 12-13 [facility] T3on 12-14-2023 T3 [Mass/Vol] 108 ng/dL 76 - 181 ng/dL [facility] T4, freeon 12-14-2023 Free T4 [Mass/Vol] 0.9 ng/dL 0.8 - 1.8 ng/dL [facility] TSHon 12-14-2023 TSH Qn 2.93 m[IU]/L mIU/L [facility] Comment on above: Reference Range > or = 20 Years 0.40-4.50 Ranges First trimester 0.26-2.66 Second trimester 0.55-2.73 Third trimester 0.43-2.91 Vitamin B12on 12-14-2023 Cobalamin (Vitamin B12) [Mass/Vol] 468 pg/mL 200 - 1100 pg/mL [facility] EBV Acute Prof IgG / IgMon 0 04-26-2023 EB Ab VCA, IgG > 600.0 High 0.0-17.9 [facility] Comment on above: Result Comment: Nega tive <18.0 Equivocal 18.0 - 21.9 Positive >21.9 Performed By: #### L 501.9520, L3100.5850 #### [facility] [address] [place], [place], [id number] EBV Ab VCA, IgM < 36.0 Normal 0.0-35.9 [facility] Comment on above: Result Comment: Nega tive <36.0 Equivocal 36.0 - 43.9 Positive >43.9 Performed By: #### L 501.9520, L3100.5850 #### [facility] [address] [place], [address] EBV NuAg Ab,IgG < 18.0 Normal 0.0-17.9 [facility] Comment on above: Result Comment: Nega tive <18.0 Equivocal 18.0 - 21.9 Positive >21.9 Performed By: #### L 501.9520, L3100.5850 #### [facility] [address] [place], [address] INTERPRETATION Comment Normal . [facility] Comment on above: Result Comment: EBV Interpretation Chart [place]: Antibody Present + Antibody Absent - Interpretation VCA-IgM VCA-IgG EBNA-IgG No previous infection/ - - - Susceptible Primary infection (new + + - or recent) Past Infection +or- + + See comment below* + - - *Results indicate infection with EBV at some time however cannot predict the timing of the infection since antibodies to EBNA usually develop after primary infection or, alternatively, approximately 5-10% of patients with EBV never develop antibodies to EBNA. Performed at: [address] [id number] [place] [place] Specialist: Pio Quiroga PhD, Phone: [phone] Performed By: #### L 501.9520, L3100.7550 #### [facility] [address] [place], [place], [id number] No Panel InformationOrdered By: Ann Bradley on 04-24-2023 Thyroid Stimulating Hormone (TSH) 1.08 uIU/mL 0.358-3.74 [facility] Serum David De La Rosa virus cap russ IgG antibody assay (units/volume)Ordered By: Ann Bradley on 04-24-2023 EBV capsid IgG Qn (S) [arb'U]/mL 0.0-17.9 [facility] Comment on above: Negative <18.0 Equiv ocal 18.0 - 21.9 Positive >21.9 Serum David De La Rosa virus cap russ IgM antibody assay (units/volume)Ordered By: Ann Bradley on 04-24-2023 EBV capsid IgM Qn (S) [arb'U]/mL 0.0-35.9 [facility] Comment on above: Negative <36.0 Equiv ocal 36.0 - 43.9 Positive >43.9 Serum David De La Rosa virus nuc lear IgG antibody assay (units/volume)Ordered By: Ann Bradley on 04-24-2023 EBV nuclear IgG Qn (S) < 18.0 U/mL 0.0-17.9 [facility] Comment on above: Negative <18.0 Equiv ocal 18.0 - 21.9 Positive >21.9 Thin prep Papanicolaou smear with manual screeningOrdered By: Ann Bradley on 04-24-2023 Thin prep Papanicolaou smear with manual screening Comment . [facility] Comment on above: EBV Interpretation C [facility]: Antibody Present + Antibody Absent -Interpretation VCA-IgM VCA-IgG EBNA-IgGNo previous infection/ - - -SusceptiblePrimary infection (new + + -or recent)Past Infection +or- + +See comment below* + - -*Results indicate infection with EBV at some time however cannot predict the timing of the infection since antibodies to EBNA usually develop after primary infection or, alternatively, approximately 5-10% of patients with EBV never develop antibodies to EBNA.Performed at: [address] [id number] Director: Pio Quiroga PhD, Phone: [phone] Thyroid Stim Hormone (TSH)on 04-24-2023 TSH 1.08 uIU/mL Normal 0.358-3.74 [facility] Comment on above: Performed By: #### L 236.8511, L3820.0399 #### [facility] [address] [place], [address] Absolute lymphocyte countOrd ered By: Ann Bradley on 03-22-2023 Lymphocytes Auto (Unsp spec) [#/Vol] 2.64 10*3/uL 0.83-4.51 [facility] Basophil percentageOrdered B y: Ann Bradley on 03-22-2023 Basophils/100 WBC (Bld) 0.5 % 0-1 [facility] Bilirubin [Mass/Vol] 0.60 mg/dL 0.20-1.00 [facility] Comment on above: For patients on eltr ombopag therapy, use of [employer] TBIL is not recommended. Chloride [Moles/Vol] 102 mmol/L 98-107 [facility] Cholesterol [Mass/Vol] 257 mg/dL <200 [facility] Comment on above: <200 mg/dL Desirable 200-240 mg/dL Borderline >240 mg/dL High Risk Eosinophils/100 WBC (Bld) 0.4 % 0-5 [facility] Glucose [Mass/Vol] 85 mg/dL 74-106 [facility] Neutrophils (Bld) [#/Vol] 6.3 10*3/uL 2.0-7.7 [facility] Neutrophils/100 WBC (Bld) 65.4 % 47-70 [facility] Potassium [Moles/Vol] 4.3 mmol/L 3.5-5.1 [facility] Protein [Mass/Vol] 8.2 g/dL 6.4-8.2 [facility] Sodium [Moles/Vol] 135 mmol/L 136-145 [facility] Triglyceride [Mass/Vol] 98 mg/dL <199 [facility] Comment on above: The drugs N-Acetylcy steine and Metamizole may falsely depress this assay.Serum Triglycerides Reference Interval Normal <150 mg/dL Borderline high 150 - 199 mg/dL High 200 - 499 mg/dL Very High > or = 500 mg/dL WBC (Bld) [#/Vol] 9.7 10*3/uL 4.4-11.0 [facility] Blood erythrocytes count (nu mber/volume)Ordered By: Ann Bradley on 03-22-2023 RBC (Bld) [#/Vol] 4.79 10*6/uL 4.2-5.4 [facility] Blood hemoglobin measurement (mass/volume)Ordered By: Ann Bradley on 03-22-2023 Hemoglobin (Bld) [Mass/Vol] 14.5 g/dL 12.0-15.0 [facility] Blood lymphocytes/100 leukoc ytesOrdered By: Ann Bradley on 03-22-2023 Lymphocytes/100 WBC (Bld) 27.3 % 19-41 [facility] Blood monocytes/100 leukocyt esOrdered By: Ann Bradley on 03-22-2023 Monocytes/100 WBC (Bld) 6.1 % 0-10 [facility] Blood platelet mean volumeOr dered By: Ann Bradley on 03-22-2023 Platelet mean volume (Bld) [Entitic vol] 10.1 fL 6.2-12.0 [facility] Determination of erythrocyte mean corpuscular volume (MCV)Ordered By: Ann Bradley on 03-22-2023 MCV (RBC) [Entitic vol] 92.3 fL 81-99 [facility] Hematocrit Auto (Bld) [Volum e fraction]Ordered By: Ann Bradley on 03-22-2023 Hematocrit (Bld) [Volume fraction] 44.2 % 37-47 [facility] - Chemistry and C hemistry - challengeOrdered By: Ann Bradley on 03-22-2023 ALP [Catalytic activity/Vol] 71 U/L 45-117 [facility] ALT [Catalytic activity/Vol] 20 U/L 13-56 [facility] CO2 [Moles/Vol] 29.0 mmol/L 21.0-32.0 [facility] Globulin (S) [Mass/Vol] 4.3 g/dL 2.2-4.2 [facility] Urea nitrogen/Creatinine [Mass ratio] 14.6 mg/mg 10-20 [facility] - Hematology and Cell countsOrdered By: Ann Bradley on 03-22-2023 Erythrocyte distribution width (RBC) [Entitic vol] 42.7 fL 35.1-43.9 [facility] Erythrocyte distribution width (RBC) [Ratio] 12.4 % 11.6-14.6 [facility] Immature granulocytes/100 WBC (Bld) 0.300 % 0.0-0.9 [facility] Comment on above: IG% - Immature Granu locytes (promyelocytes, myelocytes and metamyelocytes) > 1% indicates that a LEFT SHIFT is Present. MCH (RBC) [Entitic mass] 30.3 pg 27.0-32.0 [facility] Nucleated RBC/100 WBC (Bld) [Ratio] 0 % 0-5 [facility] MCHC Auto (RBC) [Mass/Vol]Or dered By: Ann Bradley on 03-22-2023 MCHC (RBC) [Mass/Vol] 32.8 g/dL 32-36 [facility] No Panel InformationOrdered By: Ann Bradley on 03-22-2023 Estimated GFR (MDRD) Amer 105 mL/min >60 [facility] Comment on above: GFR Calc Estimated GFR (MDRD) Non-Af Amer 87 mL/min >60 [facility] Comment on above: Non- GFR Calc Thyroid Stimulating Hormone (TSH) 4.39 uIU/mL 0.358-3.74 [facility] Platelets bldOrdered By: Ricardo Bradley on 03-22-2023 Platelets (Bld) [#/Vol] 315 10*3/uL 150-450 [facility] Serum David De La Rosa virus cap russ IgG antibody assay (units/volume)Ordered By: Ann Bradley on 03-22-2023 EBV capsid IgG Qn (S) [arb'U]/mL 0.0-17.9 [facility] Comment on above: Negative <18.0 Equiv ocal 18.0 - 21.9 Positive >21.9 Serum David De La Rosa virus cap russ IgM antibody assay (units/volume)Ordered By: Ann Bradley on 03-22-2023 EBV capsid IgM Qn (S) [arb'U]/mL 0.0-35.9 [facility] Comment on above: Negative <36.0 Equiv ocal 36.0 - 43.9 Positive >43.9 Serum David De La Rosa virus nuc lear IgG antibody assay (units/volume)Ordered By: Ann Bradley on 08-23-2023 EBV nuclear IgG Qn (S) < 18.0 U/mL 0.0-17.9 [facility] Comment on above: Negative <18.0 Equiv ocal 18.0 - 21.9 Positive >21.9 Serum or plasma albumin selvin urement (mass/volume)Ordered By: Ann Bradley on 03-22-2023 Albumin [Mass/Vol] 3.9 g/dL 3.2-5.0 [facility] Serum or plasma albumin/glob ulin mass ratioOrdered By: Ann Bradley on 03-22-2023 Albumin/Globulin [Mass ratio] 0.9 {ratio} 0.9-2.4 [facility] Serum or plasma calcium selvin urement (mass/volume)Ordered By: Ann Bradley on 03-22-2023 Calcium [Mass/Vol] 9.4 mg/dL 8.5-10.1 [facility] Serum or plasma cholesterol in HDL measurement (mass/volume)Ordered By: Ann Bradley on 03-22-2023 Cholesterol in HDL [Mass/Vol] 87 mg/dL >40 [facility] Comment on above: The drugs N-Acetylcy steine and Metamizole may falsely depress this assay. Reference Range HDL <40 mg/dL Low HDL Cholesterol HDL >or= 60 mg/dL High HDL Cholesterol Serum or plasma cholesterol in VLDL measurement (mass/volume)Ordered By: Ann Bradley on 03-22-2023 Cholesterol in VLDL [Mass/Vol] 20 mg/dL 5-40 [facility] Serum or plasma creatinine m easurement (mass/volume)Ordered By: Ann Bradley on 03-22-2023 Creatinine [Mass/Vol] 0.76 mg/dL 0.55-1.02 [facility] Comment on above: The validity of the calculated GFR & GFRAA in patients over 70 years has not been determined. Clinical correlation is essential. Serum or plasma low density lipoprotein (LDL) cholesterol measurement (mass/volume)Ordered By: Ann Bardley on 03-22-2023 Cholesterol in LDL [Mass/Vol] 150 mg/dL 0-130 [facility] Serum or plasma urea nitroge n measurement (mass/volume)Ordered By: Ann Bradley on 03-22-2023 Urea nitrogen [Mass/Vol] 11 mg/dL 7-18 [facility] Thin prep Papanicolaou smear with manual screeningOrdered By: Ann Bradley on 03-22-2023 Thin prep Papanicolaou smear with manual screening 12 U/L 15-37 [facility] Thin prep Papanicolaou smear with manual screening 4 5-15 [facility] Thin prep Papanicolaou smear with manual screening Comment . [facility] Comment on above: EBV Interpretation C hartKey: Antibody Present + Antibody Absent -Interpretation VCA-IgM VCA-IgG EBNA-IgGNo previous infection/ - - -SusceptiblePrimary infection (new + + -or recent)Past Infection +or- + +See comment below* + - -*Results indicate infection with EBV at some time however cannot predict the timing of the infection since antibodies to EBNA usually develop after primary infection or, alternatively, approximately 5-10% of patients with EBV never develop antibodies to EBNA.Performed at: [address] [id number] Director: Pio Quiroga PhD, Phone: [phone] DBT Breast - bilateral diagn osticon 01-24-2023 [facility] 1975 [id number] Exam Date/Time: 01/24/2023 08:37 Procedure: BI MAMMOGRAM DIAGNOSTIC TOMOSYNTHESIS BILATERAL Ordering Provider: DEE SEVASTI Reason For Exam: ABNORMAL MAMMOGRAM COMPARISONS: 10/25/2021, 11/16/2021 MAMMOGRAM: Image views: 2D CC and MLO views were acquired. 3D CC and MLO views were acquired. Markings on images: BB's = Nipples; skin lesions Open mary's igloo = Palpable Line = Scar TISSUE DENSITY: BIRADS B - There are scattered fibroglandular densities. Images were reviewed with CAD. FINDINGS: The patient is a 47-year-old who presents for short-term six month follow-up for right breast masses. The mass in the upper outer quadrant of the left breast is less conspicuous on the current examination. A new mass is present in the superior medial aspect of the left breast at the mid depth. No suspicious tumor calcifications, skin thickening or nipple retraction are seen. The patient was sent for ultrasound. BREAST ULTRASOUND: FINDINGS: Targeted ultrasound of the left breast at the 9:00 position 4 cm from the nipple demonstrates an oval anechoic cyst measuring 0.8 x 0.9 x 0.4 cm at. Correlate with the new mammographic finding. No further follow-up is warranted. Targeted ultrasound of the right breast was performed. Redemonstrated at the 9:30 position 5 cm from the nipple is a hypoechoic mass without vascular flow measuring 0.5 x 0.6 x 0.5 cm. There are avascular low-level echoes and posterior enhancement. The findings are compatible with a cyst containing debris. At the 11:30 position 3 cm from the nipple there is an anechoic structure containing avascular internal echoes and septation. The findings are compatible with a septated cyst versus cystic cluster. It measures 0.7 x 0.9 x 0.4 cm. Short-term follow-up is recommended. [facility] Loulou Nguyen MD - 01/24/2023 [facility] Name[facility] 1975 [id number] Exam Date/Time: 01/24/2023 08:37 Procedure: BI MAMMOGRAM DIAGNOSTIC TOMOSYNTHESIS BILATERAL Ordering Provider: DEE SEVASTI Reason For Exam: ABNORMAL MAMMOGRAM COMPARISONS: 10/25/2021, 11/16/2021 MAMMOGRAM: Image views: 2D CC and MLO views were acquired. 3D CC and MLO views were acquired. Markings on images: BB's = Nipples; skin lesions Open mary's igloo = Palpable Line = Scar TISSUE DENSITY: BIRADS B - There are scattered fibroglandular densities. Images were reviewed with CAD. FINDINGS: The patient is a 47-year-old who presents for short-term six month follow-up for right breast masses. The mass in the upper outer quadrant of the left breast is less conspicuous on the current examination. A new mass is present in the superior medial aspect of the left breast at the mid depth. No suspicious tumor calcifications, skin thickening or nipple retraction are seen. The patient was sent for ultrasound. BREAST ULTRASOUND: FINDINGS: Targeted ultrasound of the left breast at the 9:00 position 4 cm from the nipple demonstrates an oval anechoic cyst measuring 0.8 x 0.9 x 0.4 cm at. Correlate with the new mammographic finding. No further follow-up is warranted. Targeted ultrasound of the right breast was performed. Redemonstrated at the 9:30 position 5 cm from the nipple is a hypoechoic mass without vascular flow measuring 0.5 x 0.6 x 0.5 cm. There are avascular low-level echoes and posterior enhancement. The findings are compatible with a cyst containing debris. At the 11:30 position 3 cm from the nipple there is an anechoic structure containing avascular internal echoes and septation. The findings are compatible with a septated cyst versus cystic cluster. It measures 0.7 x 0.9 x 0.4 cm. Short-term follow-up is recommended. IMPRESSION: Probable benign right breast mass. Continued surveillance is recommended. ASSESSMENT: Category 3 Probably benign RECOMMENDATION: Breast ultrasound in 6 months Right Report Dictated on Electronically Signed By: Loulou Nguyen Electronically Signed Date/Time: 01/24/2023 9:16 AM T [facility] Radiology Study observation (narrative) [facility] No Panel Informationon 01-24 Probable benign righ t breast mass. Continued surveillance is recommended. ASSESSMENT: Category 3 Probably benign RECOMMENDATION: Breast ultrasound in 6 months Right Report Dictated on Electronically Signed By: Loulou Nguyen Electronically Signed Date/Time: 01/24/2023 9:16 AM T [facility] RADI[facility] No Panel InformationOrdered By: Loulou Nguyen on 01-24-2023 [employer] Work Phone: US Breast - bilateral limite don 01-24-2023 [facility] Name: [facility] 1975 [id number] Exam Date/Time: 01/24/2023 09:00 Procedure: BI US BREAST LIMITED BILATERAL Ordering Provider: DEE SEVASTI Reason For Exam: ABNORMAL MAMMOGRAM COMPARISONS: 10/25/2021, 11/16/2021 MAMMOGRAM: Image views: 2D CC and MLO views were acquired. 3D CC and MLO views were acquired. Markings on images: BB's = Nipples; skin lesions Open mary's igloo = Palpable Line = Scar TISSUE DENSITY: BIRADS B - There are scattered fibroglandular densities. Images were reviewed with CAD. FINDINGS: The patient is a 47-year-old who presents for short-term six month follow-up for right breast masses. The mass in the upper outer quadrant of the left breast is less conspicuous on the current examination. A new mass is present in the superior medial aspect of the left breast at the mid depth. No suspicious tumor calcifications, skin thickening or nipple retraction are seen. The patient was sent for ultrasound. BREAST ULTRASOUND: FINDINGS: Targeted ultrasound of the left breast at the 9:00 position 4 cm from the nipple demonstrates an oval anechoic cyst measuring 0.8 x 0.9 x 0.4 cm at. Correlate with the new mammographic finding. No further follow-up is warranted. Targeted ultrasound of the right breast was performed. Redemonstrated at the 9:30 position 5 cm from the nipple is a hypoechoic mass without vascular flow measuring 0.5 x 0.6 x 0.5 cm. There are avascular low-level echoes and posterior enhancement. The findings are compatible with a cyst containing debris. At the 11:30 position 3 cm from the nipple there is an anechoic structure containing avascular internal echoes and septation. The findings are compatible with a septated cyst versus cystic cluster. It measures 0.7 x 0.9 x 0.4 cm. Short-term follow-up is recommended. [facility] Loulou Nguyen MD - 01/24/2023 Patient Name: CADENCE KAMARA : 1975 Exam Date/Time: 01/24/2023 09:00 Procedure: BI US BREAST LIMITED BILATERAL Ordering Provider: DEE SEVASTI Reason For Exam: ABNORMAL MAMMOGRAM COMPARISONS: 10/25/2021, 11/16/2021 MAMMOGRAM: Image views: 2D CC and MLO views were acquired. 3D CC and MLO views were acquired. Markings on images: BB's = Nipples; skin lesions Open mary's igloo = Palpable Line = Scar TISSUE DENSITY: BIRADS B - There are scattered fibroglandular densities. Images were reviewed with CAD. FINDINGS: The patient is a 47-year-old who presents for short-term six month follow-up for right breast masses. The mass in the upper outer quadrant of the left breast is less conspicuous on the current examination. A new mass is present in the superior medial aspect of the left breast at the mid depth. No suspicious tumor calcifications, skin thickening or nipple retraction are seen. The patient was sent for ultrasound. BREAST ULTRASOUND: FINDINGS: Targeted ultrasound of the left breast at the 9:00 position 4 cm from the nipple demonstrates an oval anechoic cyst measuring 0.8 x 0.9 x 0.4 cm at. Correlate with the new mammographic finding. No further follow-up is warranted. Targeted ultrasound of the right breast was performed. Redemonstrated at the 9:30 position 5 cm from the nipple is a hypoechoic mass without vascular flow measuring 0.5 x 0.6 x 0.5 cm. There are avascular low-level echoes and posterior enhancement. The findings are compatible with a cyst containing debris. At the 11:30 position 3 cm from the nipple there is an anechoic structure containing avascular internal echoes and septation. The findings are compatible with a septated cyst versus cystic cluster. It measures 0.7 x 0.9 x 0.4 cm. Short-term follow-up is recommended. IMPRESSION: Probable benign right breast mass. Continued surveillance is recommended. ASSESSMENT: Category 3 Probably benign RECOMMENDATION: Breast ultrasound in 6 months Right Report Dictated on Electronically Signed By: Loulou Nguyen Electronically Signed Date/Time: 01/24/2023 9:16 AM EDT [facility] Radiology Study observation (narrative) [facility] XR SACRUM/COCCYX 3V AP/LATon 04-13-2022 XR SACRUM/COCCYX 3V AP/LAT * * *Final Report* * * DATE OF EXAM: Apr 13 2022 2:01PM LDX [id number] - XR SACRUM/COCCYX 3V AP/LAT / PROCEDURE REASON: low back pain * * * * Physician Interpretation * * * * EXAM TITLE: SACRUM/COCCYX 3 VIEWS DATE: 04/13/2022 COMPARISON: No prior available. CLINICAL INDICATION/HISTORY: Low back pain. TECHNIQUE: AP, AP downtilt, and lateral views were obtained of the sacrum/coccyx. FINDINGS: There is no evidence of acute fracture, dislocation, or destructive osseous lesion. The visualized hip, sacroiliac, and symphysis pubis joint spaces are well preserved. No evidence of cortical erosion. Mild disc space narrowing and osteophyte formation at the L5-S1 level. IMPRESSION: Mild degenerative disc disease at the L5-S1 level. Otherwise unremarkable examination. Carding Doubler: PSCAlex Transcribe Date/Time: Apr 15 2022 3:55P Dictated by : VIPUL SMALLS MD This examination was interpreted and the report reviewed and electronically signed by: VIPUL SMALLS MD on Apr 15 2022 3:57PM EST [id number] Normal [facility] MG Breast Tomosynthesis Diag nostic Righton 11-16-2021 MG Breast Tomosynthesis Diagnostic Right Patient Name: CADENCE KAMARA Mammography ACCESSION EXAM DATE/TIME PROCEDURE ORDERING PROVIDER [id number] 11/16/2021 15:30 EDT MG Breast Tomosynthesis MD LEILA, SEVASTI K Diagnostic Right CPT code 62332 [id number] Reason For Exam (MG Breast Tomosynthesis Diagnostic Right) Other abnormal and inconclusive findings on diagnostic imaging of breast Report REASON FOR EXAM: addl evaluation requested from abnormal screening. PROCEDURE: MG BREAST TOMOSYNTHESIS RIGHT: NOVEMBER 16, 2021 - 2D/3D Procedure 3D views: CC and MLO view(s) were taken of the right breast. 2D views: CC and MLO view(s) were taken of the right breast. TISSUE DENSITY: BIRADS B - There are scattered fibroglandular densities. . FINDINGS: The patient was called back from screening mammogram for a right breast mass. Mammogram: A circumscribed mass is seen within the superior lateral right breast at anterior depth. This is felt to correspond to the finding the patient was called back for. ULTRASOUND: Targeted sonographic evaluation the right breast was performed using Doppler. At the 9:30 position, 5 cm from nipple there is a circumscribed hypoechoic mass measuring 0.5 x 0.5 x 0.6 cm. There is no evidence of internal vascularity. This most likely represents a complicated cyst. Short- term follow-up is recommended. At the 11:30 position, 2 cm from nipple there is a circumscribed avascular anechoic mass measuring 0.9 x 0.5 x 0.8 cm. This is consistent with a benign cyst. No further follow-up is required. This most likely correspond to the mammographic finding. Incidentally at the 11:30 position, 3 cm from nipple there is a cyst cluster measuring 1.1 x 0.5 x 1.0 cm. There is no evidence of internal vascularity. Short-term follow-up is recommended. At the 3:00 position, reported by the report there is no evidence of a mass or focal abnormality. Report there is no evidence of a mass or focal abnormality. IMPRESSION: Two probably benign right breast masses. Short-term follow-up is recommended. An additional benign right breast cyst. Mammography Report Markings on images: BB's = Nipples; skin lesions Open mary's igloo = Palpable Line = Scar US BREAST LIMITED RIGHT: NOVEMBER 16, 2021 - 2D digital mammography and tomosynthesis imaging were performed and reviewed with CAD. ASSESSMENT: Category 3 Probably benign (Overall) RECOMMENDATION: Ultrasound of the right breast in 6 months. Ultrasound follow-up of the masses at the 9:30 position, 5 cm the nipple and 11:30 position, 3 cm from the nipple. . 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 PATIENT CANCER HISTORY: No Personal History of Cancer FAMILY CANCER HISTORY: No Family History of Cancer Lifetime breast cancer risk: Average Risk - If greater than or equal to 20%, consider annual mammogram and annual screening Breast MRI or follow up in high risk clinic. A score of Average Risk indicates a score of less than 20%. Is the patient at elevated risk based on the HBOC criteria? No (Hereditary Breast and Ovarian Cancer) - If yes, consider genetic counseling and testing with high risk follow up. Is the patient at elevated risk based on the Mcconnell Syndrome criteria? No - If yes, consider genetic counseling and testing with high risk follow up. Report Dictated on Final Dictated: 11/16/2021 3:34 pm Dictating Physician: DO CAMERON RACHEL Signed Date and Time: 11/16/2021 3:34 pm Signed by: DO CAMERON RACHEL [facility] US Breast Limited Righton US Breast Limited Right Patient Name: CADENCE KAMARA Ultrasound ACCESSION EXAM DATE/TIME PROCEDURE ORDERING PROVIDER [id number] 11/16/2021 15:57 EDT US Breast Limited Right MD LEILA, KENYA Greer CPT code 45269 Reason For Exam (US Breast Limited Right) abnl mammo Report REASON FOR EXAM: addl evaluation requested from abnormal screening. PROCEDURE: MG BREAST TOMOSYNTHESIS RIGHT: NOVEMBER 16, 2021 - 2D/3D Procedure 3D views: CC and MLO view(s) were taken of the right breast. 2D views: CC and MLO view(s) were taken of the right breast. TISSUE DENSITY: BIRADS B - There are scattered fibroglandular densities. . FINDINGS: The patient was called back from screening mammogram for a right breast mass. Mammogram: A circumscribed mass is seen within the superior lateral right breast at anterior depth. This is felt to correspond to the finding the patient was called back for. ULTRASOUND: Targeted sonographic evaluation the right breast was performed using Doppler. At the 9:30 position, 5 cm from nipple there is a circumscribed hypoechoic mass measuring 0.5 x 0.5 x 0.6 cm. There is no evidence of internal vascularity. This most likely represents a complicated cyst. Short- term follow-up is recommended. At the 11:30 position, 2 cm from nipple there is a circumscribed avascular anechoic mass measuring 0.9 x 0.5 x 0.8 cm. This is consistent with a benign cyst. No further follow-up is required. This most likely correspond to the mammographic finding. Incidentally at the 11:30 position, 3 cm from nipple there is a cyst cluster measuring 1.1 x 0.5 x 1.0 cm. There is no evidence of internal vascularity. Short-term follow-up is recommended. At the 3:00 position, reported by the report there is no evidence of a mass or focal abnormality. Report there is no evidence of a mass or focal abnormality. IMPRESSION: Two probably benign right breast masses. Short-term follow-up is recommended. An additional benign right breast cyst. Markings on images: BB's = Nipples; skin lesions Open mary's igloo = Palpable Ultrasound Report Line = Scar US BREAST LIMITED RIGHT: NOVEMBER 16, 2021 - 2D digital mammography and tomosynthesis imaging were performed and reviewed with CAD. ASSESSMENT: Category 3 Probably benign (Overall) RECOMMENDATION: Ultrasound of the right breast in 6 months. Ultrasound follow-up of the masses at the 9:30 position, 5 cm the nipple and 11:30 position, 3 cm from the nipple. . Report Dictated on Final Signed Date and Time: 11/16/2021 3:57 pm Signed by: DO CAMERON RACHEL [facility] 10-26-2021 [facility] HNO ID: [id number] Author: Mammography Coordinator Service: ? Author Type: Physician Type: Letter Filed: 10/27/2021 11:31 PM Note Text: October 26, 2021 PID: [id number] Cadence Kamara [address] [place] [address] Dear Ms. Kamara, Your recent breast imaging exam on 10/25/2021 showed a possible finding that requires additional imaging studies for a complete evaluation. Most such findings are probably benign (not cancer). Your mammogram demonstrates that you have dense breast tissue, which could hide abnormalities. Dense breast tissue, in and of itself, is a relatively common condition. Therefore, this information is not provided to cause undue concern; rather, it is to raise your awareness and promote discussion with your health care provider regarding the presence of dense breast tissue in addition to other risk factors. If you have a healthcare provider who ordered/prescribed your screening mammogram: Please call to schedule an appointment for your additional imaging (if you have not already done so). If you DO NOT have a healthcare provider (ie you did not have an order/prescription for your screening mammogram): Please call to schedule an appointment for your additional imaging (if you have not already done so). You must have an order/prescription from your physician when calling to schedule your appointment. If your order/prescription is not electronic, you must bring the hard copy with you on the day of your exam to avoid delays. Your imaging studies and reports are kept on file at [facility] as part of your permanent medical record, and are available for your continuing care. Thank you for allowing us to help in meeting your health care needs. Sincerely, Dr. Santana Interpreting Radiologist [facility] (Additional imaging) Normal [facility] MARIA LUISA SCREENING W TOMOon 10-25 [facility] SCREENING W HUMA * * *Final Report* * * DATE OF EXAM: Oct 25 2021 3:14PM MELINDA [id number] - [facility] SCREENING W HUMA / PROCEDURE REASON: Z12.31 MAMMOGRAM SCREENING * * * * Physician Interpretation * * * * #[id number] - [facility] SCREENING W HUMA BILATERAL DIGITAL SCREENING MAMMOGRAM TOMOSYNTHESIS WITH CAD: 10/25/2021 HISTORY: Z12.31 Mammogram Screening. RESULT: TECHNIQUE: The study was acquired using full field digital technology and interpreted from soft copy. Digital Breast Tomosynthesis (DBT) images were obtained and used to assist in the interpretation of this examination. Current study was also evaluated with a Computer Aided Detection (CAD). Comparison is made to exams dated: 06/18/2020 mammogram, 06/19/2019 mammogram, and [facility]. The tissue of both breasts is heterogeneously dense. This may lower the sensitivity of mammography. There is an oval mass with a circumscribed margin in the right breast upper outer aspect anterior depth. There also is an oval mass in the right breast at 3 o'clock. No other significant masses, calcifications, or other findings are seen in either breast. IMPRESSION: INCOMPLETE: NEEDS ADDITIONAL IMAGING EVALUATION The oval mass in the right breast upper outer aspect anterior depth is indeterminate. An ultrasound is recommended. The oval mass in the right breast at 3 o'clock is indeterminate. An ultrasound is recommended. Ryan francois/xi:10/26/2021 08:18:04 Health Information Provider(s): RT Susie(R)(M), [facility] letter sent: Additional Imaging Needed Mammogram BI-RADS: 0 Incomplete: needs additional imaging evaluation If this report indicates you need additional imaging, and it has NOT yet been performed, please call , to schedule. We sincerely thank you for choosing the [facility] for your breast imaging needs. Multiple national specialty organizations have released breast cancer screening guidelines for women at average risk for developing breast cancer - guidelines that are based on both evidence and opinion, yet differ on when to start and how often to screen for breast cancer. With representation from Breast Imaging, Internal Medicine, Women's Health, Family Medicine, and Medical/Surgical Oncology, the [facility] has carefully reviewed the data and reached the following consensus: 1) All women should engage in shared decision-making with their providers to decide when to start and how often to screen; 2) All women should have the opportunity to start screening mammography at age 40; 3) For women ages 45-55, we recommend annual screening mammograms; 4) For women ages 55 and over, we support both the transition from an annual to a biennial interval if this aligns more with patient's values and preferences, or continuation with annual screening; 5) All women should discuss with their providers when to stop screening mammograms. Carding Doubler: Xi Transcribe Date/Time: Oct 25 2021 3:03P Dictated by : RYAN SANTANA MD This examination was interpreted and the report reviewed and electronically signed by: RYAN SANTANA MD on Oct 26 2021 8:18AM EST [id number] Normal [facility] SCREENINGon 06-18-2020 [facility] SCREENING Final Report DATE OF EXAM: Jun 18 2020 5:10PM LDW [id number] - [facility] SCREENING / PROCEDURE REASON: Screening Physician Interpretation #[id number] - [facility] SCREENING BILATERAL DIGITAL SCREENING MAMMOGRAM WITH CAD: 06/18/2020 HISTORY: / Screening Mammogram-Patient reports NO symptoms. RESULT: TECHNIQUE: The study was acquired using full field digital technology and interpreted from soft copy. Current study was also evaluated with a Computer Aided Detection (CAD). Comparison is made to exams dated: 06/19/2019 mammogram, 01/02/2019 mammogram, 06/07/2018 mammogram, 05/23/2018 mammogram, and 09/02/[facility]. The tissue of both breasts is heterogeneously dense. This may lower the sensitivity of mammography. No significant masses, calcifications, or other findings are seen in either breast. There has been no significant interval change. IMPRESSION: NEGATIVE There is no mammographic evidence of malignancy. A 1 year screening mammogram is recommended. Kathie smith/xi:06/19/2020 08:32:55 Health Information Provider(s): Jonathan Winkler (Josh)(M), [facility] letter sent: Normal over 40 Mammogram BI-RADS: 1 Negative Multiple national specialty organizations have released breast cancer screening guidelines for women at average risk for developing breast cancer - guidelines that are based on both evidence and opinion, yet differ on when to start and how often to screen for breast cancer. With representation from Breast Imaging, Internal Medicine, Women's Health, Family Medicine, and Medical/Surgical Oncology, the [facility] has carefully reviewed the data and reached the following consensus: 1) All women should engage in shared decision-making with their providers to decide when to start and how often to screen; 2) All women should have the opportunity to start screening mammography at age 40; 3) For women ages 45-55, we recommend annual screening mammograms; 4) For women ages 55 and over, we support both the transition from an annual to a biennial interval if this aligns more with patient's values and preferences, or continuation with annual screening; 5) All women should discuss with their providers when to stop screening mammograms. Carding Doubler: Xi Transcribe Date/Time: Jun 18 2020 4:59P Dictated by : KATHIE BAUTISTA MD This examination was interpreted and the report reviewed and electronically signed by: KATHIE BAUTISTA MD on Jun 19 2020 8:32AM EST Normal [facility] Vital Signs Date Time Vital Sign Value Performing Clinician Faci lity 11-27-2024 10:20-0400 Diastolic blood pressure 80 mm[Hg] Kenya Dee MD Work Phone: [facility] 11-27-2024 10:20-0400 Systolic blood pressure 150 mm[Hg] Kenya Dee MD Work Phone: [facility] 11-27-2024 09:34-0400 Body height 152.4 cm Kenya Dee MD Work Phone: [facility] 11-27-2024 09:34-0400 Body mass index (BMI) [Ratio] 28.71 kg/m2 Kenya Dee MD Work Phone: [facility] 11-27-2024 09:34-0400 Body weight 66.68 kg Kenya Dee MD Work Phone: [facility] 11-27-2024 09:34-0400 Heart rate 97 /min Kenya Dee MD Work Phone: [facility] 12-22-2023 15:48-0400 Body height 152.4 cm Amber Dowd MD Work Phone: [facility] 12-22-2023 15:48-0400 Body mass index (BMI) [Ratio] 30.86 kg/m2 Amber Dowd MD Work Phone: [facility] 12-22-2023 15:48-0400 Body weight 71.67 kg Amber Dowd MD Work Phone: [facility] 12-13-2023 10:14-0400 Body height 153.7 cm Bhavin Yoana DO Work Phone: [facility] 12-13-2023 10:14-0400 Body mass index (BMI) [Ratio] 30.35 kg/m2 Bhavin Yoana DO Work Phone: [facility] 12-13-2023 10:14-0400 Body weight 71.67 kg Bhavin Yoana DO Work Phone: [facility] 12-13-2023 10:14-0400 Diastolic blood pressure 85 mm[Hg] Bhavin Yoana DO Work Phone: [facility] 12-13-2023 10:14-0400 Heart rate 106 /min Bhavin Rossi DO Work Phone: [facility] 12-13-2023 10:14-0400 Respiratory rate 18 /min Bhavin Rossi DO Work Phone: [facility] 12-13-2023 10:14-0400 SaO2% (BldA) [Mass fraction] 98 % Bhavin Rossi DO Work Phone: [facility] 12-13-2023 10:14-0400 Systolic blood pressure 123 mm[Hg] Bhavin Menezesnaugh DO Work Phone: [facility] 11-22-2023 10:17-0400 Body height 156.2 cm Amber Dowd MD Work Phone: [facility] 11-22-2023 10:17-0400 Body mass index (BMI) [Ratio] 29.18 kg/m2 Amber Dowd MD Work Phone: [facility] 11-22-2023 10:17-0400 Body weight 71.22 kg Amber Dowd MD Work Phone: [facility] 11-22-2023 10:17-0400 Diastolic blood pressure 83 mm[Hg] Amber Dowd MD Work Phone: [facility] 11-22-2023 10:17-0400 Systolic blood pressure 136 mm[Hg] Amber Dowd MD Work Phone: [facility] 11-15-2023 10:08-0400 Body height 152.4 cm Kenya Dee MD Work Phone: [facility] 11-15-2023 10:08-0400 Body mass index (BMI) [Ratio] 30.66 kg/m2 Kenya Dee MD Work Phone: [facility] 11-15-2023 10:08-0400 Body weight 71.22 kg Kenya Dee MD Work Phone: [facility] 11-15-2023 10:08-0400 Diastolic blood pressure 84 mm[Hg] Kenya Dee MD Work Phone: [facility] 11-15-2023 10:08-0400 Heart rate 107 /min Kenya Dee MD Work Phone: [facility] 11-15-2023 10:08-0400 Systolic blood pressure 138 mm[Hg] Kenya Dee MD Work Phone: [facility] 04-24-2023 19:14-0400 Body height 153.67 cm [facility] 03-22-2023 18:27-0400 Body mass index (BMI) [Ratio] 28.6 kg/m2 [facility] 03-22-2023 18:27-0400 Body temperature 97.9 [degF] [facility] 03-22-2023 18:27-0400 Body weight 67.58 kg [facility] 03-22-2023 18:27-0400 Diastolic blood pressure 70 mm[Hg] [facility] 03-22-2023 18:27-0400 Heart rate 90 /min [facility] 03-22-2023 18:27-0400 Respiratory rate 18 /min [facility] 03-22-2023 18:27-0400 SaO2% (BldA) [Mass fraction] 97 % [facility] 03-22-2023 18:27-0400 Systolic blood pressure 122 mm[Hg] [facility] 01-24-2023 08:25-0400 Body height 152.4 cm Ann Bradley Work Phone: [facility] 01-24-2023 08:25-0400 Body mass index (BMI) [Ratio] 28.9 kg/m2 Ann Bradley Work Phone: [facility] 01-24-2023 08:25-0400 Body weight 67.13 kg Ann Bradley Work Phone: [facility] 11-09-2022 10:03-0400 Body mass index (BMI) [Ratio] 28.81 kg/m2 Kenya Dee MD Work Phone: [facility] 11-09-2022 10:03-0400 Body weight 68.04 kg Kenya Dee MD Work Phone: [facility] 11-09-2022 10:03-0400 Diastolic blood pressure 88 mm[Hg] Kenya Dee MD Work Phone: [facility] 11-09-2022 10:03-0400 Heart rate 102 /min Kenya Dee MD Work Phone: [facility] 11-09-2022 10:03-0400 Systolic blood pressure 160 mm[Hg] Kenya Dee MD Work Phone: [facility] Encounters Encounter Date Encounter Type Care Provider Facility Start: 02-06-2025 End: 02-06-2025 Subsequent hospital visit by physician Rad External Film [facility] Comment on above: Arrived Start: 02-06-2025 End: 02-06-2025 ambulatory [facility] Start: 01-29-2025 End: 01-29-2025 ambulatory [facility] Start: 01-29-2025 End: 01-29-2025 Subsequent hospital visit by physician Edith Keene[address] [place] [address] 1 [facility] Comment on above: Encounter for screen ing mammogram for malignant neoplasm of breast Start: 12-02-2024 End: 12-02-2024 Office outpatient visit 15 minutes Kenya Dee MD Work Phone: [facility] - Deidra Coronel Comment on above: Perimenopause (Prima ry Dx); Hypercholesteremia Start: 12-02-2024 End: 12-02-2024 ambulatory KENYA DEE [facility] Start: 11-27-2024 End: 11-27-2024 Patient encounter status Kenya Dee MD Work Phone: [facility] Start: 11-27-2024 End: 11-27-2024 Periodic preventive med est patient 40-64yrs Kenya Dee MD Work Phone: [facility] - [facility] Comment on above: Encounter for gyneco logical examination without abnormal finding (Primary Dx); Encounter for screening mammogram for malignant neoplasm of breast; Screening for colon cancer; Abnormal uterine bleeding (AUB); Stress fracture of left tibia with routine healing, subsequent encounter Start: 11-27-2024 End: 11-27-2024 ambulatory [facility] Start: 11-27-2024 End: 11-27-2024 Encounter for gynecological examination (general) (routine) without abnormal findings [facility] Start: 08-08-2024 End: 08-20-2024 Telephone encounter Bhavin Rossi DO Work Phone: [facility] Start: 07-12-2024 End: 07-16-2024 Refill Kenya Dee MD Work Phone: [facility] - [facility] Comment on above: Abnormal uterine ble eding (AUB) Start: 07-01-2024 End: 07-01-2024 Orders Only Bhavin Rossi DO Work Phone: [facility] Comment on above: Lymphadenopathy, ant erior cervical (Primary Dx) Start: 04-11-2024 Encounter for genera l adult medical examination without abnormal findings Ann Bradley NP [facility] Start: 03-26-2024 End: 03-26-2024 ambulatory Ann Bradley NP Facility:[facility] Start: 01-17-2024 End: 01-17-2024 Telephone encounter Historical Provider Work Phone: [facility] Comment on above: Colon Cancer Screeni ng (Screening program) Start: 01-12-2024 End: 01-12-2024 ambulatory [facility] Start: 01-12-2024 End: 01-12-2024 Office outpatient visit 15 minutes Amber Dowd MD Work Phone: [facility] Comment on above: Stress fracture of l eft tibia with delayed healing, subsequent encounter (Primary Dx) Start: 12-22-2023 End: 12-22-2023 ambulatory AMBER DOWD [facility] Start: 12-22-2023 End: 12-22-2023 Office outpatient visit 15 minutes Amber Dowd MD Work Phone: [facility] Comment on above: Stress fracture of l eft tibia with delayed healing, subsequent encounter (Primary Dx) Start: 12-22-2023 End: 12-22-2023 ambulatory BHAVIN YOANA [facility] Start: 12-22-2023 End: 12-22-2023 Subsequent hospital visit by physician Bhavin Rossi DO Work Phone: [facility] Comment on above: Lymphadenopathy, ant erior cervical; Hypothyroidism, unspecified type Start: 12-13-2023 End: 12-13-2023 Office outpatient new 45 minutes Bhavin Rossi DO Work Phone: [facility] Comment on above: Chronic fatigue (Vera elsie Dx); Lymphadenopathy, anterior cervical; Hypothyroidism, unspecified type Start: 11-24-2023 Telephone encounter Bhavin awad DO Work Phone: [facility] Comment on above: New Patient Start: 11-22-2023 End: 11-22-2023 Office outpatient visit 15 minutes Amber Dowd MD Work Phone: [facility] Comment on above: Stress fracture of l eft tibia, initial encounter (Primary Dx); Hypothyroidism, unspecified type; Acute left ankle pain; Vitamin D deficiency Start: 11-22-2023 End: 11-22-2023 Subsequent hospital visit by physician Amber Dowd MD Work Phone: [facility] Comment on above: Acute left ankle emily n Start: 11-20-2023 Telephone encounter Medhat hernandez MD Work Phone: [facility] Comment on above: Appointment Request Start: 11-15-2023 End: 11-15-2023 Patient encounter status Kenya Dee MD Work Phone: [facility] Work Phone: Start: 11-15-2023 End: 11-15-2023 Periodic preventive med est patient 40-64yrs Kenya Dee MD Work Phone: [facility] Comment on above: Encounter for gyneco logical examination without abnormal finding (Primary Dx); Abnormal mammogram; Abnormal uterine bleeding (AUB); Screening for colon cancer Start: 04-24-2023 End: 04-24-2023 ambulatory [facility] Work Phone: Start: 04-24-2023 End: 04-24-2023 Patient encounter procedure [facility] Spec[facility] Work Phone: Start: 04-24-2023 End: 04-24-2023 ambulatory Ann Bradley TEAM FACILITATOR Facility:[facility] Start: 03-22-2023 End: 03-22-2023 Patient encounter procedure [facility] Work Phone: Start: 01-24-2023 End: 01-24-2023 Subsequent hospital visit by physician Ann Bradley Work Phone: [facility] Comment on above: Abnormal mammogram Start: 11-09-2022 End: 11-09-2022 Patient encounter status Kenya Dee MD Work Phone: [facility] Start: 11-09-2022 End: 11-09-2022 Periodic preventive med est patient 40-64yrs Kenya Dee MD Work Phone: [facility] Comment on above: Encounter for gyneco logical examination without abnormal finding (Primary Dx); Abnormal mammogram; Screening for colon cancer; Abnormal uterine bleeding (AUB) Start: 10-31-2022 Refill Kenya ferreira MD Work Phone: [facility] Comment on above: Abnormal uterine and vaginal bleeding, unspecified Start: 04-13-2022 ambulatory ANN Peralta ity:[facility] Start: 04-13-2022 End: 04-13-2022 Subsequent hospital visit by physician [facility] Comment on above: Low back pain, unspe cified [M54.50] Start: 10-25-2021 End: 10-25-2021 Subsequent hospital visit by physician Screen/Diagnostic Mammo [facility] Work Phone: Mammography Comment on above: Encounter for screen ing mammogram for malignant neoplasm of breast [Z12.31] Start: 05-05-2020 Patient encounter status [facility] Procedures Date Procedure Procedure Detail Performing Clinician Start: 02-06-2025 End: 02-06-2025 Study Interpretation of outside study [facility] [employer] Work Phone: Start: 01-29-2025 Mammography Rad Film Start: 11-27-2024 Lipid 1996 panel - S arianna or Plasma [facility] Start: 11-27-2024 Microscopic observat ion [Identifier] in Cervix by Cyto stain Historical Provider Work Phone: Start: 11-27-2024 Thyrotropin [Units/v olume] in Serum or Plasma Kenya Dee MD Work Phone: Start: 12-22-2023 Follow-up visit Follow-up AMBER DOWD Start: 12-13-2023 Complete blood count with white cell differential, automated Bhavin Rossi DO Work Phone: Start: 12-13-2023 Cyanocobalamin vitamin b-12 Bhavin Rossi DO Work Phone: Start: 12-13-2023 End: 12-13-2023 Thyrotropin [Units/volume] in Serum or Plasma Bhavin Rosis DO Work Phone: Start: 12-13-2023 Adult depression scr eening assessment Bhavin Rossi DO Work Phone: Start: 11-15-2023 Microscopic observat ion [Identifier] in Cervix by Cyto stain Bhavin Rossi DO Work Phone: Start: 11-15-2023 Thyrotropin [Units/v olume] in Serum or Plasma Amber Dowd MD Work Phone: Start: 01-24-2023 Us breast uni real t roldan with image limited Kenya Dee MD Work Phone: Start: 01-24-2023 End: 01-24-2023 Diagnostic mammography computer-aided detcj bi Kenya Dee MD Work Phone: Start: 10-27-2021 Mammography Kenya ledezma MD Work Phone: Start: 10-25-2021 [facility]ography [facility] Start: 08-12-2020 Microscopic observat ion [Identifier] in Cervix by Cyto stain Kenya Dee MD Work Phone: Start: 06-18-2020 Mammography Screen/[facility] Work Phone: Plan of Treatment Date Care Activity Detail Author Start: 2049 RSV Immunization for Adults (1 - 1-dose 75+ series) RSV Immunization for Adults (1 - 1-dose 75+ series) [facility] Start: 2034 RSV Immunization age d 60 or older (1 - 1-dose 60+ series) RSV Immunization aged 60 or older (1 - 1-dose 60+ series) [facility] Start: 11-27-2029 Lipid panel Lipid Panel [facility] Start: 11-27-2029 Screening for malign ant neoplasm of cervix [facility] Start: 11-14-2028 Screening for malign ant neoplasm of cervix [facility] Start: 11-28-2027 Screening for malign ant neoplasm of cervix [facility] Start: 11-14-2026 Screening for malign ant neoplasm of cervix Pap Smear [facility] Start: 01-29-2026 Screening for malign ant neoplasm of breast Mammogram [facility] Start: 11-28-2025 Yearly Adult Physical Yearly Adult P hysical [facility] Start: 11-27-2025 Thyroid stimulating hormone measurement TSH Level [facility] Start: 08-12-2025 Screening for malign ant neoplasm of cervix [facility] Start: 03-31-2025 Influenza vaccination S [facility] Start: 12-12-2024 Depression Screening Depression Scre tanmay [facility] Start: 12-12-2024 Thyroid stimulating hormone measurement TSH Level [facility] Start: 12-02-2024 End: 12-02-2024 Telemedicine consultation with patient 12/02/2024 11:40 AM EDT Telemedicine [facility] Obstetrics [facility] Gynecology [facility] [address] [place] [address] Kenya Dee MD [address] [place] [address] [facility] - [facility] Start: 11-27-2024 End: 01-27-2026 DBT Breast - bilateral screening Bilateral screening mammogram with tomosynthesis Imaging Routine Encounter for screening mammogram for malignant neoplasm of breast Expected: 11/27/2024 (Approximate), Expires: 01/27/2026 [facility] Comment on above: Expected: 11/27/2024 (Approximate), Expires: 01/27/2026 Start: 11-27-2024 End: 11-27-2025 DXA Skeletal system.axial Views for bone density DEXA bone density axial skeleton Imaging Routine Stress fracture of left tibia with routine healing, subsequent encounter Expected: 11/27/2024, Expires: 11/27/2025 [facility] Comment on above: Expected: 11/27/2024 , Expires: 11/27/2025 Start: 11-27-2024 End: 11-27-2025 Ferritin [Mass/volume] in Serum or Plasma Ferritin Lab Routine Abnormal uterine bleeding (AUB) Expected: 11/27/2024 (Approximate), Expires: 11/27/2025 [facility] Comment on above: Expected: 11/27/2024 (Approximate), Expires: 11/27/2025 Start: 11-27-2024 End: 11-27-2025 Thyrotropin [Units/volume] in Serum or Plasma TSH Lab Routine Abnormal uterine bleeding (AUB) Expected: 11/27/2024 (Approximate), Expires: 11/27/2025 [facility] Comment on above: Expected: 11/27/2024 (Approximate), Expires: 11/27/2025 Start: 11-27-2024 End: 11-27-2025 US Pelvis transvaginal US pelvis transvaginal Imaging Routine Abnormal uterine bleeding (AUB) Expected: 11/27/2024, Expires: 11/27/2025 [facility] Work Phone: Comment on above: Expected: 11/27/2024 , Expires: 11/27/2025 Start: 11-14-2024 Thyroid stimulating hormone measurement TSH Level [facility] Start: 07-01-2024 End: 07-01-2025 US Neck US neck Imaging Routine Lymphadenopathy, anterior cervical Expected: 07/01/2024, Expires: 07/01/2025 [facility] Work Phone: Comment on above: Expected: 07/01/2024 , Expires: 07/01/2025 Start: 03-31-2024 COVID-19 Vaccine ( season) COVID-19 Vaccine ( season) [facility] Start: 03-31-2024 Influenza vaccination [facility] Start: 02-21-2024 Pneumococcal vaccination Pneumococcal Vaccine (1 of 1 - PCV) [facility] Start: 02-21-2024 Pneumococcal Vaccine : 50+ Years (1 of 1 - PCV) Pneumococcal Vaccine: 50+ Years (1 of 1 - PCV) [facility] Start: 02-21-2024 Zoster Vaccines (1 o f 2) Zoster Vaccines (1 of 2) [facility] Start: 01-25-2024 Screening for malign ant neoplasm of breast Mammogram [facility] Start: 01-12-2024 End: 01-12-2024 Patient encounter procedure 01/12/2024 9:15 AM EDT Office Visit [facility] [address] [place] [address] [place] [id number] [facility] Start: 12-27-2023 End: 12-27-2023 Patient encounter procedure 12/27/2023 10:00 AM EDT Office Visit [facility] [address] [place] [address] Kenya Dee MD [address] [place] [address] [facility] Start: 12-27-2023 End: 12-27-2023 Professional / ancillary services management 12/27/2023 9:15 AM EDT Ancillary Procedure [facility] [address] [place] [address] [facility] Start: 12-26-2023 End: 12-26-2023 Patient encounter procedure 12/26/2023 9:00 AM EDT Appointment [facility] [address] [place] [phone] Kenya Dee MD [address] [place] [address] [facility] Start: 12-26-2023 Subsequent hospital visit by physician 12/26/2023 8:30 AM EDT Hospital Encounter [facility] [address] [place] [phone] Kenya Dee MD [address] [place] [address] [facility] Start: 12-22-2023 End: 12-22-2023 Patient encounter procedure [facility] Start: 12-13-2023 End: 12-12-2024 US Thyroid gland US thyroid Imaging Routine Lymphadenopathy, anterior cervical Hypothyroidism, unspecified type Expected: 12/13/2023, Expires: 12/12/2024 [facility] Work Phone: Comment on above: Expected: 12/13/2023 , Expires: 12/12/2024 Start: 12-13-2023 End: 12-13-2023 Patient encounter procedure 12/13/2023 8:45 AM EDT Office Visit [facility] [address] [place] [address] [facility] Start: 12-12-2023 End: 12-12-2023 Patient encounter procedure [facility] Start: 11-22-2023 End: 11-21-2024 25-hydroxyvitamin D3 [Mass/volume] in Serum or Plasma Vitamin D Deficiency Screening (Vit D 25) Lab Routine Vitamin D deficiency Expected: 11/22/2023 (Approximate), Expires: 11/21/2024 [facility] Comment on above: Expected: 11/22/2023 (Approximate), Expires: 11/21/2024 Start: 11-22-2023 End: 11-22-2023 Patient encounter procedure 11/22/2023 10:30 AM EDT Office Visit [facility] [address] [place] [address] [facility] Start: 11-21-2023 End: 2024 XR Ankle - left 3 Views XR ankle 3+ views left Imaging Routine Acute left ankle pain Expected: 11/21/2023, Expires: 2024 [facility] Work Phone: Comment on above: Expected: 11/21/2023 , Expires: 2024 Start: 11-15-2023 End: 11-14-2024 CBC W Auto Differential panel - Blood CBC auto differential Lab Routine Abnormal uterine bleeding (AUB) Expected: 11/15/2023 (Approximate), Expires: 11/14/2024 [facility] Comment on above: Expected: 11/15/2023 (Approximate), Expires: 11/14/2024 Start: 11-15-2023 End: 01-14-2025 DBT Breast - bilateral diagnostic Bilateral diagnostic mammogram with tomosynthesis Imaging Routine Abnormal mammogram Expected: 11/15/2023, Expires: 01/14/2025 [facility] Comment on above: Expected: 11/15/2023 , Expires: 01/14/2025 Start: 11-15-2023 End: 11-14-2024 Ferritin [Mass/volume] in Serum or Plasma Ferritin Lab Routine Abnormal uterine bleeding (AUB) Expected: 11/15/2023 (Approximate), Expires: 11/14/2024 [facility] Work Phone: Comment on above: Expected: 11/15/2023 (Approximate), Expires: 11/14/2024 Start: 11-15-2023 End: 11-14-2024 Thyrotropin [Units/volume] in Serum or Plasma TSH Lab Routine Abnormal uterine bleeding (AUB) Expected: 11/15/2023 (Approximate), Expires: 11/14/2024 [facility] Comment on above: Expected: 11/15/2023 (Approximate), Expires: 11/14/2024 Start: 11-15-2023 End: 11-14-2024 Thyroxine (T4) free [Mass/volume] in Serum or Plasma T4, free Lab Routine Abnormal uterine bleeding (AUB) Expected: 11/15/2023 (Approximate), Expires: 11/14/2024 [facility] Comment on above: Expected: 11/15/2023 (Approximate), Expires: 11/14/2024 Start: 11-15-2023 End: 01-14-2025 US Breast - right limited Right breast US limited Imaging Routine Abnormal mammogram Expected: 11/15/2023, Expires: 01/14/2025 [facility] Comment on above: Expected: 11/15/2023 , Expires: 01/14/2025 Start: 11-15-2023 End: 11-14-2024 US Pelvis transvaginal US pelvis transvaginal Imaging Routine Abnormal uterine bleeding (AUB) Expected: 11/15/2023, Expires: 11/14/2024 [facility] Comment on above: Expected: 11/15/2023 , Expires: 11/14/2024 Start: 11-15-2023 End: 11-15-2023 Patient encounter procedure [facility] Start: 08-12-2023 Screening for malign ant neoplasm of cervix Pap Smear [facility] Start: 03-31-2023 COVID-19 Vaccine () COVID-19 Vaccine ( season) [facility] Start: 03-31-2023 Influenza vaccination Influenz a Vaccine (Season Ended) [facility] Start: 11-09-2022 End: 01-10-2024 DBT Breast - bilateral diagnostic Bilateral diagnostic mammogram with tomosynthesis Imaging Routine Abnormal mammogram Expected: 11/09/2022, Expires: 01/10/2024 [facility] Work Phone: Comment on above: Expected: 11/09/2022 , Expires: 01/10/2024 Start: 11-09-2022 End: 01-10-2024 US Breast - right limited Right breast US limited Imaging Routine Abnormal mammogram Expected: 11/09/2022, Expires: 01/10/2024 [facility] Comment on above: Expected: 11/09/2022 , Expires: 01/10/2024 Start: 11-09-2022 End: 11-09-2022 Patient encounter procedure 11/09/2022 Office Visit Obstetrics and Gynecology Kenya Dee MD [address] [place] [address] [address] [place] [address] [facility] Start: 10-27-2022 Screening for malign ant neoplasm of breast Mammogram [facility] Start: 10-25-2022 Mammography MAMMOGRAM [facility] Start: 07-16-2022 Diabetes mellitus screening Diabetes Screening [facility] Start: 03-31-2022 Influenza vaccination INFLUENZA (#1) [facility] Start: 06-18-2021 Mammography MAMMOGRAM [facility] Start: 03-31-2021 Influenza vaccination INFLUENZA (#1) [facility] Start: 2019 COLOGUARD (FIT-DNA) COLOGUARD (FIT-D NA) [facility] Start: 2019 Colonoscopy COLONOSCOPY [facility] Start: 2019 COLORECTAL CANCER SCREENING COLORECTAL CANCER SCREENING [facility] Start: [address] COLONOGRAPHY [facility] Start: 2019 DIABETES SCREEN DIABETES SCREEN [facility] Start: 2019 FECAL OCCULT BLOOD FECAL OCCULT BLOO D [facility] Start: 2019 LIPID SCREEN LIPID SCREEN [facility] Start: 2019 SIGMOIDOSCOPY SIGMOIDOSCOPY [facility] Start: 02-21-2004 HPV TESTING HPV TESTING [facility] Start: 02-21-1996 DTaP/Tdap/Td Vaccine s (1 - Tdap) DTaP/Tdap/Td Vaccines (1 - Tdap) [facility] Start: 1995 PAP TESTING PAP TESTING [facility] Start: 1995 Screening for malign ant neoplasm of cervix HPV/Cotest [facility] Start: 1993 DTaP/Tdap/Td Vaccine s (1 - Tdap) DTaP/Tdap/Td Vaccines (1 - Tdap) [facility] Start: 1993 Hepatitis B Vaccines (1 of 3 - 19+ 3-dose series) Hepatitis B Vaccines (1 of 3 - 19+ 3-dose series) [facility] Start: 1993 Urine microalbumin profile DTAP,TDAP,TD (1 - Tdap) [facility] Start: 02-21-1992 HEPATITIS C SCREENING HEPATITIS C [facility] Start: 02-21-1992 Hepatitis C screening Hepatitis C [facility] Start: 02-21-1992 HIV SCREENING HIV SCREENING [facility] Start: 1986 Adult depression screening assessment DEPRESSION SCREENING [facility] Start: 1979 COVID-19 VACCINE (1) COVID-19 VACCIN E (1) [facility] Start: 1975 MMR Vaccines (1 of 1 - Standard series) MMR Vaccines (1 of 1 - Standard series) [facility] Start: 1974 COVID-19 VACCINE (#1) COVID-19 VACCI NE (#1) [facility] Start: 1974 HEPATITIS B (1 of 3 - 3-dose series) HEPATITIS B (1 of 3 - 3-dose series) [facility] Start: 1974 Hepatitis B Vaccines (1 of 3 - 3-dose series) Hepatitis B Vaccines (1 of 3 - 3-dose series) [facility] Start: 1974 HIV screening HIV Screening [facility] Start: 1974 Screening for malign ant neoplasm of colon [facility] Cytology Cervical or vaginal smear or scraping study Pap Smear Pathology and Cytology Routine Encounter for gynecological examination without abnormal finding Ordered: 11/15/2023 [facility] Comment on above: Ordered: 11/15/2023 Cytology Cervical or vaginal smear or scraping study Pap Smear Pathology and Cytology Routine Encounter for gynecological examination without abnormal finding Ordered: 11/27/2024 [facility] Comment on above: Ordered: 11/27/2024 End: 01-29-2025 DBT Breast - bilateral [facility] Service Area Work Phone: Comment on above: Once for 1 Occurrenc es starting 01/29/2025 until 01/29/2025 hCG, quantitative hCG, quantitat theresa Lab Routine Abnormal uterine bleeding (AUB) Ordered: 11/15/2023 [facility] Comment on above: Ordered: 11/15/2023 Lipid 1996 panel - Serum or Plasma Lipid panel Lab Routine Abnormal uterine bleeding (AUB) Ordered: 11/27/2024 [facility] Comment on above: Ordered: 11/27/2024 Thyroxine (T4) free [Mass/volume] in Serum or Plasma T4, free Lab Routine Abnormal uterine bleeding (AUB) Or[facility]: 11/27/2024 [facility] Comment on above: Ordered: 11/27/2024 End: 12-22-2023 US Thyroid gland [facility] Work Phone: Comment on above: Once for 1 Occurrenc es starting 12/22/2023 until 12/22/2023 End: 11-22-2023 XR Ankle - left 3 Views [facility] Comment on above: Once for 1 Occurrenc es starting 11/22/2023 until 11/22/2023 Payers Date Payer Category Payer Blue Cross Blue Shie leobardo Managed Care [facility] [id number] 2023 Self-pay [id number] 2021 Blue Cross Willis More[place] ld Managed Care - HMO [id number] 2021 Unknown [id number] 2021 Unknown [id number] 2021 Unknown [id number] 2019 Unknown [employer] BLUE CARD PPO OOS [id number] 2019-Present [phone] [address] [place] [address] PPO [id number] 1974 Unknown [id number] 1974 Unknown [id number] 1974 Unknown [id number] 1974 Unknown [id number] 1974 Unknown [id number] 1974 Unknown [id number] Unknown [facility] [id number] Unknown [id number] Unknown [id number] Social History Date Type Detail Facility Tobacco smoking stat us NHIS Never smoked tobacco [facility] Start: 06-20-2016 Alcohol intake Not Asked Soila mckeon [facility] Start: 1975 [facility] Start: 10-15-2021 End: 04-13-2022 Exposure to SARS-CoV-2 (event) Not sure [facility] Start: 07-19-2022 Alcohol intake Current drinke r of alcohol (finding) [facility] Start: 07-19-2022 End: 12-13-2023 Alcohol intake [facility] Start: 11-09-2022 End: 12-13-2023 Alcohol intake Ex-drinker (finding) [facility] Start: 01-24-2023 End: 12-13-2023 Tobacco use panel [facility] Start: 05-19-2022 Gender identity Identifies as female gender (finding) [facility] Start: 05-19-2022 Sexual orientation Heterosexual (fin ding) [facility] Start: 03-22-2021 [facility] Has the [employer], oil, or water company threatened to shut off services in your home in past 12Mo No [facility] Are you now , , , , never or living with a partner? [facility] How often to you hav e a drink containing alcohol? Monthly or less [facility] How many standard drinks containing alcohol do you have on a typical day? 1 or 2 [facility] How often do you hav e 6 or more drinks on 1 occasion? Never [facility] How hard is it for y ou to pay for the very basics like food, housing, medical care, and heating Not hard at all [facility] Do you feel stress - tense, restless, nervous, or anxious, or unable to sleep at night because your mind is troubled all the time - these days [OSQ] To some extent [facility] (I/We) worried ramona er (my/our) food would run out before (I/we) got money to buy more. Never true [facility] Start: 02-28-2022 Sex Female (finding) [facility] Clinical Notes 10-25-2021 to 12-16-2024 Telephone Encounter - Priscila Grimm - 12/16/2024 1:48 PM EDTTelephone Encounter - Priscila Grimm - 12/16/2024 1:48 PM EDTTelephone Encounter - Priscila Grimm - 03/20/2024 3:01 PM EDT Note Date & Type Note Facility 12-16-2024 Note 2nd referral 1st attempt MyChart message sent 11/29/24 2nd attempt called patient Left message to call the screening program at [phone] [facility] 12-16-2024 Telephone encounter Note 2nd referral 1st attempt MyChart message sent 11/29/24 2nd attempt called patient Left message to call the screening program at [phone] [facility] 12-16-2024 Miscellaneous Notes 2nd referral 1st attempt MyChart message sent 11/29/24 2nd attempt called patient Left message to call the screening program at [phone] Called patient to schedule screening colonoscopy. Spoke with patient who stated she is not interested in scheduling at this time. Noted and closed referral. Screening/Surveillance Program- Cologuard Called patient to offer Cologuard Sent my chart message to call colorectal office at [phone] documented in this encounter [facility] 12-02-2024 History of Present illness Narrative Cadence Kamara 1975 is an Established patient patient here for evaluation of the following: Assessment/Plan Below is the assessment and plan developed based on review of pertinent history, physical exam, labs, studies, and medications Diagnoses and all orders for this visit: Perimenopause - will continue 200 prometrium daily for now. Planning US to eval endometrium - Discussed E2 after CV eval - Discussed brisdelle for symptoms until then - will think about it - Planning mammo and DEXA as well [facility]; Future SUBJECTIVE HPI Taking Prometrium 200 mg every day Menses spacing out In the last 6 months: February, June, July, October Sometimes heavy and sometime light, lasting 3 days Cramping Pap last year with endometrial cells, US ordered but was not done, planning to do this year Sx: - weight loss with keto diet and now weight gain. On Keto. Has limited exercise d/t stress fracture - hot flashes and night sweats - fatigue - stress fracture ( atraumatic) of tibia, still healing ( would like DEXA) - knee and shoulder pain - brain fog, - anxiety/emotional - poor sleep EMB 2020 ENDOMETRIAL BIOPSY - FRAGMENTS OF SECRETORY ENDOMETRIUM NEGATIVE FOR HYPERPLASIA OR MALIGNANCY Component Latest Ref Rng 11/27/2024 CHOLESTEROL, TOTAL <200 mg/dL 313 (H) HDL CHOLESTEROL - QUEST > OR = 50 mg/dL 91 TRIGLYCERIDES - QUEST <150 mg/dL 116 LDL-CHOLESTEROL mg/dL (calc) 197 (H) CHOL/HDLC RATIO <5.0 (calc) 3.4 NON HDL CHOLESTEROL <130 mg/dL (calc) 222 (H) T4, FREE 0.8 - 1.8 ng/dL 1.0 THYROID STIMULATING HORMONE mIU/L 3.04 FERRITIN 16 - 232 ng/mL 94 Legend: (H) High Objective: Constitutional: No acute distress RESPIRATORY: Normal effort, normal speech PSYCHIATRIC: Normal mood and affect, A&O x 3 I spent total time 25 minutes caring for patient today, reviewing prior notes and labs, ordering additional tests/medications/procedures, counseling and educating patient, and documenting clinical information into patients electronic health record. Patient was seen today via Telehealth by agreement and consent. I used the following Telehealth technology: Audio capability only. Total length of call 20 minutes. I was unable to connect to video. Patient location: Patient Location: [place] . This patient encounter is appropriate and reasonable under the circumstances: Access to care . The patient has been advised of the potential risks and limitations of this mode of treatment (including but not limited to the absence of in-person examination) and has agreed to be treated in a remote fashion in spite of them. Any and all of the patient's/patient's family's questions on this issue have been answered and I have made no promises or guarantees to the patient. The patient has also been advised to contact this office for worsening conditions or problems, and seek emergency medical treatment and/or call 911 if the patient deems either necessary. The patient stated that they are currently in the state [facility]. If the patient is a minor, permission has been obtained by the parent or guardian for the patient to receive medical care at this visit. documented in this encounter [facility] 12-02-2024 Instructions Kenya Dee MD - 12/02/2024 11:40 AM EDT [place] documented in this encounter [facility] 12-02-2024 Note Cadence Kamara 1974 is an Established patient patient here for evaluation of the following: Assessment/Plan Below is the assessment and plan developed based on review of pertinent history, physical exam, labs, studies, and medications Diagnoses and all orders for this visit: Perimenopause - will continue 200 prometrium daily for now. Planning US to eval endometrium - Discussed E2 after CV eval - Discussed brisdelle for symptoms until then - will think about it - Planning mammo and DEXA as well Hypercholesteremia - [facility]; Future SUBJECTIVE HPI Taking Prometrium 200 mg every day Menses spacing out In the last 6 months: February, June, July, October Sometimes heavy and sometime light, lasting 3 days Cramping Pap last year with endometrial cells, US ordered but was not done, planning to do this year Sx: - weight loss with keto diet and now weight gain. On Keto. Has limited exercise d/t stress fracture - hot flashes and night sweats - fatigue - stress fracture ( atraumatic) of tibia, still healing ( would like DEXA) - knee and shoulder pain - brain fog, - anxiety/emotional - poor sleep EMB 2020 ENDOMETRIAL BIOPSY - FRAGMENTS OF SECRETORY ENDOMETRIUM NEGATIVE FOR HYPERPLASIA OR MALIGNANCY Component Latest Ref Rng 11/27/2024 CHOLESTEROL, TOTAL <200 mg/dL 313 (H) HDL CHOLESTEROL - QUEST > OR = 50 mg/dL 91 TRIGLYCERIDES - QUEST <150 mg/dL 116 LDL-CHOLESTEROL mg/dL (calc) 197 (H) CHOL/HDLC RATIO <5.0 (calc) 3.4 NON HDL CHOLESTEROL <130 mg/dL (calc) 222 (H) T4, FREE 0.8 - 1.8 ng/dL 1.0 THYROID STIMULATING HORMONE mIU/L 3.04 FERRITIN 16 - 232 ng/mL 94 Legend: (H) High Objective: Constitutional: No acute distress RESPIRATORY: Normal effort, normal speech PSYCHIATRIC: Normal mood and affect, A&O x 3 I spent total time 25 minutes caring for patient today, reviewing prior notes and labs, ordering additional tests/medications/procedures, counseling and educating patient, and documenting clinical information into patients electronic health record. Patient was seen today via Telehealth by agreement and consent. I used the following Telehealth technology: Audio capability only. Total length of call 20 minutes. I was unable to connect to video. Patient location: Patient Location: [place] . This patient encounter is appropriate and reasonable under the circumstances: Access to care . The patient has been advised of the potential risks and limitations of this mode of treatment (including but not limited to the absence of in-person examination) and has agreed to be treated in a remote fashion in spite of them. Any and all of the patient's/patient's family's questions on this issue have been answered and I have made no promises or guarantees to the patient. The patient has also been advised to contact this office for worsening conditions or problems, and seek emergency medical treatment and/or call 911 if the patient deems either necessary. The patient stated that they are currently in the state of [place]. If the patient is a minor, permission has been obtained by the parent or guardian for the patient to receive medical care at this visit. [facility] 11-27-2024 History of Present illness Narrative A rate supervisor was offered to be present during her exam. The patient: Declined. Cadence Kamara 11/27/2024 49 y.o. Primary Care Physician: Bhavin Rossi DO Chief Complaint Patient presents with Annual Exam HPI : Cadence Kamara is a 49 y.o. female here for annual exam Was diagnosed with hypothyroid. 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 Had side effects and stopped it. Repeat labs normal CBC and CMP HgbA1c normal 02/2024 Lipids elevated 02/2024, had just started Keto. LDL was 187 __ Gynecologic History: Patient's last menstrual period was 11/20/2024 (exact date). Taking Prometrium 200 mg 21 days on and 7 days off. Menses spacing out In the last 6 months: February, June, July, October Sometimes heavy and sometime light Cramping Pap last year with endometrial cells, US ordered but was not done See [employer] message for other sx: - weight loss with keto diet and now weight gain. - hot flashes and night sweats - fatigue - stress fracture ( atraumatic) of tibia, still healing ( would like DEXA) - knee and shoulder pain - brain fog, - anxiety/emotional - poor sleep EMB 2020 ENDOMETRIAL BIOPSY - FRAGMENTS OF SECRETORY ENDOMETRIUM NEGATIVE FOR HYPERPLASIA OR MALIGNANCY Contraception: Condoms OB History Para Term AB Living 3 3 2 1 3 SAB IAB Ectopic Multiple Live Births 3 # Outcome Date GA Lbr Matthew/2nd Weight Sex Type Anes PTL Lv 3 Term Vag-Spont YESSENIA 2 Term Vag-Spont YESSENIA 1 Vag-Spont YESSENIA Preventative Health Testing: Date of Last Pap Smear: 07/2020 neg pap and HPV Abnormal Pap Smear History: none Date of Last Mammogram: Hx of abnormal- declines continued diagnostic imaging due to cost Would like screening Date of Last Colonoscopy: none- ok with referral Past Medical History: Diagnosis Date Abnormal Pap smear of cervix October 2023. Have ultrasound 12/26 Hypothyroidism Past Surgical History: Procedure Laterality Date FRACTURE SURGERY Fractured knee cap 03/2004 KNEE SURGERY Right x 2 Family History Problem Relation Name Age of Onset No Known Problems Father Hypertension Mother Rosi Castañeda Arthritis Mother Rosi Castañeda Rheumatologic disease Mother Rosi Castañeda Arthritis Sister Neema Galindo Social History Socioeconomic History Marital status: Spouse name: Not on file Number of children: Not on file Years of education: Not on file Highest education level: Not on file Occupational History Not on file Tobacco Use Smoking status: Never Smokeless tobacco: Never Vaping Use Vaping status: Never Used Substance and Sexual Activity Alcohol use: Not Currently Alcohol/week: 1.0 standard drink of alcohol Types: 1 Standard drinks or equivalent per week Drug use: No Sexual activity: Yes Partners: Male control/protection: Condom Male Other Topics Concern Not on file Social History Narrative Not on file Social Drivers of Health Financial Resource Strain: Low Risk (12/13/2023) Overall Financial Resource Strain (CARDIA) Difficulty of Paying Living Expenses: Not hard at all Food Insecurity: No Food Insecurity (12/13/2023) Hunger Vital Sign Worried About Running Out of Food in the Last Year: Never true Ran Out of Food in the Last Year: Never true Transportation Needs: No Transportation Needs (12/13/2023) PRAPARE - Transportation Lack of Transportation (Medical): No Lack of Transportation (Non-Medical): No Physical Activity: Sufficiently Active (12/13/2023) Exercise Vital Sign Days of Exercise per Week: 5 days Minutes of Exercise per Session: 30 min Stress: Stress Concern Present (12/13/2023) [place] [employer] - Occupational Stress Questionnaire Feeling of Stress : To some extent Social Connections: Moderately Integrated (12/13/2023) Social Connection and Isolation Panel [NHANES] Frequency of Communication with Friends and Family: Three times a week Frequency of Social Gatherings with Friends and Family: Twice a week Attends Bahai Services: More than 4 times per year Active Member of Clubs or Organizations: No Attends Club or Organization Meetings: Never Marital Status: Intimate Partner Violence: Not At Risk (12/13/2023) Humiliation, Afraid, Rape, and Kick questionnaire Fear of Current or Ex-Partner: No Emotionally Abused: No Physically Abused: No Sexually Abused: No Housing Stability: Unknown (12/13/2023) Housing Stability Vital Sign Unable to Pay for Housing in the Last Year: No Number of Places Lived in the Last Year: Not on file Unstable Housing in the Last Year: No MEDICATIONS: Current Outpatient Medications Medication Sig Dispense Refill b complex vitamins capsule Take 1 capsule by mouth daily. cholecalciferol (Vitamin D-3) 50 MCG (2000 UT) capsule Take by mouth. Probiotic Product (PROBIOTIC DAILY PO) Take by mouth. progesterone (Prometrium) 100 MG capsule Take 2 capsules (200 mg) by mouth daily. 60 capsule 2 No current facility-administered medications for this visit. ALLERGIES: Allergies as of 11/27/2024 (No Known Allergies) REVIEW OF SYSTEMS: CONSTIUTIONAL: No weight change or fatigue CV: No Chest Pain with Exertion, Palpitations, Syncope, Edema, Arrhythmia RESPIRATORY: No SOB or Cough, BREAST: No breast abnormalities or lumps GI: No Indigestion, Heartburn, Nausea, vomiting, Diarrhea, Constipation,Bloating or Bowel Changes; No Bloody Stools or melena : No Dysuria, Hematuria or Nocturia. No Urinary Incontinence or Vaginal Discharge,vaginal bleeding, or dysparuenia. NEURO: No CVA, Migraines,Seizure Hx, or Limb Weakness DERM: No Rash, Itching, Mole Changes or Cancer PSYCH: No Depression, Homicidal thoughts,suicidal thoughts, or anxiety MUSCULOSKELETAL: No Arthralgia or Arthritis HEME and LYMPH :No Lymphoma, Von Willebrand's, Hemophillia or Bleeding History PHYSICAL EXAM: Vitals: 11/27/24 0934 11/27/24 1020 BP: (!) 146/79 (!) 150/80 Pulse: 97 Weight: 147 lb (66.7 kg) Height: 5' (1.524 m) Body mass index is 28.71 kg/m . DOPE EDGER: BREASTS: normal, no masses, tenderness or skin changes. EXTERNAL GENITALIA: normal female structures VAGINA: normal ruggae, no lesions CERVIX: no lesions, no cervical motion tenderness, normal appearance. UTERUS: normal mobility, nontender, normal size, shape and consistency. ADNEXA: normal, non tender no masses. URETHRA: normal. nontender BLADDER: non tender. PELVIC SUPPORT DEFECTS: Normal support of vagina, uterus, and bladder ANUS/PERINEUM: no hemorrhoids, masses or warts noted. GENERAL EXAM CONSTITUTIONAL: Well developed, well nourished, well groomed. no acute distress NECK: no thyromegaly, supple. CARDIOVASCULAR: normal rate and rhythm, no edema LUNGS: Normal effort, normal lung sounds ABDOMEN:soft, non-tender, non-distended, no hepatospleenomegaly NEUROLOGICAL: no gross motor or sensory deficits noted. . LYMPH NODES: no lymphadenapathy axillary or inguinal. SKIN: intact, dry MUSCULOSKELETAL: normal gait, no cyanosis. PSYCHIATRIC Normal mood and affect, A&O x3. ASSESSMENT/PLAN: Cadence was seen today for annual exam. Diagnoses and all orders for this visit: Encounter for gynecological examination without abnormal finding (Primary) - Pap Smear Encounter for screening mammogram for malignant neoplasm of breast - Bilateral screening mammogram with tomosynthesis; Future Screening for colon cancer - Ambulatory referral to Gastroenterology; Future Abnormal uterine bleeding (AUB) - US pelvis transvaginal; Future - Lipid panel - TSH; Future - T4, free - TSH - Ferritin; Future - Ferritin Stress fracture of left tibia with routine healing, subsequent encounter - DEXA bone density axial skeleton; Future Has hormone consult scheduled for next week Routine health maintenance per patients PCP. documented in this encounter [facility] 08-26-2024 Telephone encounter Note Noted. [facility] 08-26-2024 Miscellaneous Notes Noted. We have been unable to reach your patient to schedule their testing. Test Name: US Neck 1st Attempt: 1st attempt, via WUT, 07/02/24-BD 2nd Attempt: 2nd attempt - called and LVM - TE to office - 08/08/24 AAD [facility] Tele[facility] encounter Note We have been unable to reach your patient to schedule their testing. Test Name: US Neck 1st Attempt: 1st attempt, via WUT, 07/02/24-BD 2nd Attempt: 2nd attempt - called and LVM - TE to office - 08/08/24 AAD [facility] 08-08-2024 Miscellaneous Notes We have been unable to reach your patient to schedule their testing. Test Name: US Neck 1st Attempt: 1st attempt, via GotGamet msg, 07/02/24-BD 2nd Attempt: 2nd attempt - called and LVM - TE to office - 08/08/24 AAD documented in this encounter [facility] 07-15-2024 Telephone encounter Note Last visit 10/2023. Rx pended. [facility] 07-15-2024 Miscellaneous Notes Last visit 10/2023. Rx pended. documented in this encounter [facility] 03-20-2024 Note Called patient to sc hedule screening colonoscopy. Spoke with patient who stated she is not interested in scheduling at this time. Noted and closed referral. [facility] 03-20-2024 Telephone encounter Note Called patient to schedule screening colonoscopy. Spoke with patient who stated she is not interested in scheduling at this time. Noted and closed referral. [facility] 03-20-2024 Miscellaneous Notes Called patient to schedule screening colonoscopy. Spoke with patient who stated she is not interested in scheduling at this time. Noted and closed referral. Screening/Surveillance Program- Cologuard Called patient to offer Cologuard Sent my chart message to call colorectal office at [phone] documented in this encounter [facility] 01-17-2024 Telephone encounter Note Screening/Surveillance Program- Cologuard Called patient to offer Cologuard Sent my chart message to call colorectal office at [phone] [facility] 01-12-2024 History of Present illness Narrative Images from the original note were not included. [facility] [address] [place] [address] Dept: [phone] Dept Chief Complaint Patient presents with Leg Pain left Follow-up Subjective History of Present Illness: Cadence Kamara follows up today for left leg pain. Since the last visit on 12/22/2023, symptoms are improving, 50% better. Current symptoms are aching, shooting, and stabbing. She rates symptoms as a 0/10 at rest and a 7/10 at worst. Imaging to date: X-ray October 2023 Treatment to date: PT/OT/HEP: no Ice: yes, helpful Heat: no Medications: Tylenol: no NSAIDs: yes, Aleve/Naproxen, helpful Oral steroids: no Muscle relaxants: no Nerve medications: no Targeted injections: none Assistive devices: none Fall risk assessment: Less than 65, not applicable Objective There were no vitals taken for this visit. Physical Exam: General: Alert, well appearing, no acute distress. Respiratory: Breathing comfortably on room air. No respiratory distress. Skin: Warm, dry, intact. No visible rashes or erythema overlying area of focused exam. Physical Exam Musculoskeletal: Left lower leg: Tenderness (Distal medial one third tibia, positive fulcrum) present. No swelling. Legs: Comments: Denies pain with heel percussion External Notes No pertinent interval updates Labs Lab Results Component Value Date HGBA1C 5.1 07/16/2019 No results found for: CREATININE Imaging I have personally reviewed the images pertinent to the appointment today EMG/NCT N/A Procedure No procedures completed today Assessment Diagnosis Plan 1. Stress fracture of left tibia with delayed healing, subsequent encounter Plan Continue with low impact activities and relative rest out of the walking boot until 80% reduction in all of her symptoms. At that time we discussed gradually initiating an every other day walking program including 20 minutes of sustained walking at a normal pace with a day off in between pounding days. 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 This is more complicated due to her possible secondary issue of the stress fracture as well as diagnostically by the addition of the supplementation thyroid medication [id number] that sounds like to have been some form of a desiccated thyroid. I will see her back shortly after reintroducing the pounding program of every other day 20 minutes sustained walking. No follow-ups on file. Amber Dowd MD 01/12/2024 9:17 AM Please note that portions of this note may have been completed with voice recognition software. Documentation reviewed prior to signing but minor errors in activity therapist may have occurred. documented in this encounter [facility] 12-22-2023 History of Present illness Narrative Images from the original note were not included. [facility] [address] [place] [address] Dept: [phone] Dept Chief Complaint Patient presents with Follow-up Subjective History of Present Illness: Cadence Kamara follows up today for left ankle pain. Since the last visit on 11/22/2023, symptoms are unchanged. Current symptoms are burning pain that progresses as day progresses. She rates symptoms as a 0/10 at rest and a 7/10 at worst. Imaging to date: X-ray October 2023 Nondiagnostic, small inferior calcaneal spur Treatment to date: PT/OT/HEP: no Ice: Yes, helpful Heat: no Medications: Tylenol: no NSAIDs: No Oral steroids: no Muscle relaxants: no Nerve medications: no Targeted injections: none Assistive devices: Boot. 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 Patient's initial TSH at over 5 was treated at home initially by the patient with desiccated thyroid. She then had a follow-up TSH that was at 2.8 and a thyroid nodule was palpated so is currently being worked up. Despite normal T3 and T4 levels her stress fracture without significant overuse could be a symptom of hypothyroidism. Patient states that she did not mention to her PCP that she was taking desiccated thyroid for short period of time. Currently her lower one third medial tibial symptoms are not significantly resolved. Objective There were no vitals taken for this visit. Physical Exam: General: Alert, well appearing, no acute distress. Respiratory: Breathing comfortably on room air. No respiratory distress. Skin: Warm, dry, intact. No visible rashes or erythema overlying area of focused exam. Physical Exam Musculoskeletal: Left lower leg: Tenderness (Distal medial one third tibia, positive fulcrum) present. No swelling. Legs: Comments: Denies pain with heel percussion External Notes No pertinent interval updates Labs Lab Results Component Value Date HGBA1C 5.1 07/16/2019 No results found for: CREATININE Imaging I have personally reviewed the images pertinent to the appointment today EMG/NCT N/A Procedure No procedures completed today Assessment Diagnosis Plan 1. Stress fracture of left tibia with delayed healing, subsequent encounter Plan Patient is still having some discomfort over her distal one third medial tibia consistent with her stress fracture. We will continue to offload her leg as frequently as possible without progressing to crutches or cane as we do not want to lose significant muscle mass in the process. She may have an underlying contributing factor with her current thyroid status I anticipate this could slow her recovery but not prevent it from healing. I will plan on seeing her back in 3 weeks. No follow-ups on file. Amber Dowd MD 12/22/2023 3:47 PM Please note that portions of this note may have been completed with voice recognition software. Documentation reviewed prior to signing but minor errors in activity therapist may have occurred. documented in this encounter [facility] 12-13-2023 History of Present illness Narrative Images from the original note were not included. [facility] [address] [facility] [address] Visit Type: New Patient Appointment PCP: Bhavin Rossi DO Reason for Visit: New Patient (results that thyroid levels are high and pt had side effects from levothyroxine in the past) Assessment and Plan Cadence was seen today for new patient. Diagnoses and all orders for this visit: Chronic fatigue - Vitamin B12; Future - Iron and TIBC; Future - TSH; Future - T4, free; Future - T3; Future - CBC auto differential; Future - Vitamin B12 - Iron and TIBC - TSH - T4, free - T3 - CBC auto differential Lymphadenopathy, anterior cervical - US thyroid; Future Hypothyroidism, unspecified type - US thyroid; Future Some of her evaluation to date is a bit off the current medical guidelines, so will repeat some lab studies today to get updated assessment and make a judgment on if she should receive thyroid hormone replacement. Her tests for thyroid in the past have been very borderline with the TSH. She also had a sensitive reaction to thyroid hormone replacement, implying that she was over treated, but we don't have a lab while getting treatment for long enough to know what level it dropped her TSH to. Incidental finding on exam today with small lymph node near the R trachea. US ordered to evaluate further. No follow-ups on file. On this date, 12/19/2023 I have spent 45 minutes reviewing previous notes, test results and [id number] with the patient discussing the diagnosis, pathophysiology, and management, as well as documenting on the day of the visit. Carla KOEHLER Presents for a new patient visit. She has the following past medical history: H/o hypothyroidism - diagnosed in February (TSH 4.39) and put on levothyroxine 50 mcg by her PCP (Ann Bradley NP), but stopped after a few months d/t SE of palps, hot flashes, anxiety - within a week of stopping med she felt better all symptoms Follows with gynecology for routine pap and mammo. - recent visit in October and noted change in menstrual cycles - endometrial biopsy and US pending She has the following concerns today: She was seen by gynecology in October and noted abnormal menstrual cycles and fatigue. TSH was recheck with the following values: Elevated TSH at 5.65, Free T4 0.8 She notes concern about her thyroid for a while d/t the following symptoms: Fatigue, abnormal cycles. Cold hands and feet Doesn't wake feeling rested. Doesn't sleep well in general Ann Bradley NP - follows for routine checks. - get's checked for EBV reactivation - started on levothyroxine Uses progesterone to get her rest. with 3 children. All boys. 31, 27, 11yo. 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 She had a presumed diagnosis of non-hodgkins lymphoma 20 years ago. But when she was retested to confirm by , she was noted to have atypical T cells and didn't require treatment. Previously on B12 shots for energy. But no B12 level checked. Not on shots anymore. Not vegetarian Currently on b complex oral H/o ankylosing spondylitis marker - HLA B27 positive - sister has diagnosis - follows with chiropractor Review of Systems Pertinent ROS noted in the HPI and all other systems are negative. No Known Allergies Outpatient Medications Prior to Visit Medication Sig Dispense Refill b complex vitamins capsule Take 1 capsule by mouth daily. cholecalciferol (Vitamin D-3) 50 MCG (2000 UT) capsule Take by mouth. Multiple Vitamin (MULTIVITAMIN ADULT PO) Take by mouth. Probiotic Product (PROBIOTIC DAILY PO) Take by mouth. progesterone (Prometrium) 100 MG capsule Take 2 capsules (200 mg) by mouth daily. 60 capsule 3 No facility-administered medications prior to visit. Past Medical History: Diagnosis Date Abnormal Pap smear of cervix October 2023. Have ultrasound 12/26 Hypothyroidism Social History Socioeconomic History Marital status: Tobacco Use Smoking status: Never Smokeless tobacco: Never Vaping Use Vaping Use: Never used Substance and Sexual Activity Alcohol use: Not Currently Alcohol/week: 1.0 standard drink of alcohol Types: 1 Standard drinks or equivalent per week Drug use: No Sexual activity: Yes Partners: Male control/protection: Condom Male, None Comment: no control Social Determinants of Health Financial Resource Strain: Low Risk (12/13/2023) Overall Financial Resource Strain (CARDIA) Difficulty of Paying Living Expenses: Not hard at all Food Insecurity: No Food Insecurity (12/13/2023) Hunger Vital Sign Worried About Running Out of Food in the Last Year: Never true Ran Out of Food in the Last Year: Never true Transportation Needs: No Transportation Needs (12/13/2023) PRAPARE - Transportation Lack of Transportation (Medical): No Lack of Transportation (Non-Medical): No Physical Activity: Sufficiently Active (12/13/2023) Exercise Vital Sign Days of Exercise per Week: 5 days Minutes of Exercise per Session: 30 min Stress: Stress Concern Present (12/13/2023) [place] [employer] - Occupational Stress Questionnaire Feeling of Stress : To some extent Social Connections: Moderately Integrated (12/13/2023) Social Connection and Isolation Panel [NHANES] Frequency of Communication with Friends and Family: Three times a week Frequency of Social Gatherings with Friends and Family: Twice a week Attends Bahai Services: More than 4 times per year Active Member of Clubs or Organizations: No Attends Club or Organization Meetings: Never Marital Status: Intimate Partner Violence: Not At Risk (12/13/2023) Humiliation, Afraid, Rape, and Kick questionnaire Fear of Current or Ex-Partner: No Emotionally Abused: No Physically Abused: No Sexually Abused: No Housing Stability: Unknown (12/13/2023) Housing Stability Vital Sign Unable to Pay for Housing in the Last Year: No Unstable Housing in the Last Year: No Past Surgical History: Procedure Laterality Date FRACTURE SURGERY Fractured knee cap 03/2004 KNEE SURGERY Right x 2 Family History Problem Relation Name Age of Onset No Known Problems Father Hypertension Mother Rosi Castañeda Arthritis Mother Rosi Castañeda Rheumatologic disease Mother Rosi Castañeda Arthritis Sister Neema Galindo Objective BP 123/85 (BP Location: Right arm, Patient Position: Sitting, BP Cuff Size: Adult) Pulse 106 Resp 18 Ht 5' 0.5 (1.537 m) Wt 158 lb (71.7 kg) LMP 11/15/2023 SpO2 98% BMI 30.35 kg/m Physical Exam Constitutional: General: She is not in acute distress. Appearance: Normal appearance. HENT: Head: Normocephalic and atraumatic. Right Ear: Tympanic membrane, ear canal and external ear normal. Left Ear: Tympanic membrane, ear canal and external ear normal. Mouth/Throat: Mouth: Mucous membranes are moist. Pharynx: Oropharynx is clear. No posterior oropharyngeal erythema. Eyes: General: No scleral icterus. Extraocular Movements: Extraocular movements intact. Conjunctiva/sclera: Conjunctivae normal. Pupils: Pupils are equal, round, and reactive to light. Neck: Thyroid: No thyroid mass or thyromegaly. Vascular: No carotid bruit. Cardiovascular: Rate and Rhythm: Normal rate and regular rhythm. Heart sounds: No murmur heard. Pulmonary: Effort: Pulmonary effort is normal. No respiratory distress. Breath sounds: Normal breath sounds. No wheezing, rhonchi or rales. Abdominal: General: Abdomen is flat. Bowel sounds are normal. There is no distension. Palpations: Abdomen is soft. There is no hepatomegaly, splenomegaly or mass. Tenderness: There is no abdominal tenderness. There is no guarding. Musculoskeletal: Cervical back: Normal range of motion. No tenderness. Lymphadenopathy: Cervical: Cervical adenopathy (paratracheal lymph node on the R) present. Neurological: Mental Status: She is alert. Psychiatric: Attention and Perception: Attention normal. Mood and Affect: Mood normal. Behavior: Behavior normal. Health Maintenance The following health maintenance schedule was reviewed with the patient and provided in printed form in the after visit summary: Health Maintenance Due Topic Date Due HIV Screening Never done Colorectal Cancer Screening Never done MMR Vaccines (1 of 1 - Standard series) Never done Hepatitis C Screening Never done DTaP/Tdap/Td Vaccines (1 - Tdap) Never done Hepatitis B Vaccines (1 of 3 - 19+ 3-dose series) Never done Diabetes Screening 07/16/2022 COVID-19 Vaccine ( - 2022- season) Never done Mammogram 01/25/2024 Screening needed: none Vaccinations needed: none I have reviewed and reconciled the medication list with the patient today. There are no discontinued medications. Bhavin Rossi DO 12/19/2023 5:10 PM There are no Patient Instructions on file for this visit. documented in this encounter [facility] 11-24-2023 Telephone encounter Note Name of caller: Cadence Relation to patient: patient Contact phone number: [phone] Appointment scheduled with: Dr. Rossi Appointment date & time: 12/13/23 @10 am Reason for visit (are you having any symptoms) :pt states her OBGYN ran labs with results that thyroid levels are high and pt had side effects from levothyroxine in the past. Pt declined nurse advise today and is wanting a PCP in the same office where she sees her other specialist. Transportation issues/ concerns: no Special accommodations? ( wheel chair, etc) : no Current medications: (see chart) Any refills need: no Any chronic conditions the provider should be aware of: Dr. Sweeney states pt may have chronic David De La Rosa [facility] 11-24-2023 Miscellaneous Notes Name of caller: Cadence Relation to patient: patient Contact phone number: [phone] Appointment scheduled with: Dr. Rossi Appointment date & time: 12/13/23 @10 am Reason for visit (are you having any symptoms) :pt states her OBGYN ran labs with results that thyroid levels are high and pt had side effects from levothyroxine in the past. Pt declined nurse advise today and is wanting a PCP in the same office where she sees her other specialist. Transportation issues/ concerns: no Special accommodations? ( wheel chair, etc) : no Current medications: (see chart) Any refills need: no Any chronic conditions the provider should be aware of: Dr. Sweeney states pt may have chronic David De La Rosa documented in this encounter [facility] 11-22-2023 History of Present illness Narrative Images from the original note were not included. [facility] [address] [facility] [address] Dept: [phone] Dept Chief Complaint Patient presents with Ankle Pain Left Subjective History of Present Illness: Cadence Kamara is a 48 y.o. female who presents today for evaluation of left ankle pain. Pt has history of plantar fascitis. Location: medial Onset: 1 year, chronic Injury: no Quality: aching, shooting, and stabbing Mechanical symptoms: popping, crepitus Radiation of symptoms: no Severity: 2/10 at rest and 8/10 at worst Exacerbating factor(s): walking, prolonged standing, climbing/descending stairs, squatting, kneeling, and explosive movements (running, cutting, jumping) Relieving factor(s): rest, tennis shoes. Timing: intermittently, worst towards end of the day. Patient states she is currently between PCPs, had to stop her thyroid supplementation several months ago due to some side effects. She has not restarted and states her most recent TSH was over 5. 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 Respiratory: Breathing comfortably on room air. No respiratory distress. Skin: Warm, dry, intact. No visible rashes or erythema overlying area of focused exam. Physical Exam Musculoskeletal: Left lower leg: Tenderness (Distal medial one third tibia, positive fulcrum) present. No swelling. Legs: External Notes No pertinent interval updates Labs Lab Results Component Value Date HGBA1C 5.1 07/16/2019 No results found for: CREATININE Imaging Images reviewed with patient today I have personally reviewed the images pertinent to the appointment today EMG/NCT N/A Procedure No procedures completed today Assessment Diagnosis Plan 1. Stress fracture of left tibia, initial encounter 2. Hypothyroidism, unspecified type 3. Acute left ankle pain XR ankle 3+ views left 4. Vitamin D deficiency Vitamin D Deficiency Screening (Vit D 25) Vitamin D Deficiency Screening (Vit D 25) Plan -Discussed with the patient the nature of stress fractures. -Discussed x-ray imaging results with patient. -Will place patient in nonimpact activities for 4 weeks. -Discussed maintaining pain-free level of activity, ability to advance activity as tolerated as long as pain-free. -Discussed importance of adequate nutrition including adequate caloric intake, calcium intake, vitamin D. -Will order 25-OH D3 level. -Discussed APAP in preference to NSAIDs. -Questions answered. -Written patient information provided in the AVS. -Follow up in 3 weeks. -In addition to the vitamin D testing will also recommend that she optimize her thyroid replacement with her PCP, she is currently changing PCPs. No follow-ups on file. Amber Dowd MD 11/22/2023 10:17 AM Please note that portions of this note may have been completed with voice recognition software. Documentation reviewed prior to signing but minor errors in activity therapist may have occurred. documented in this encounter [facility] 11-21-2023 Telephone encounter Note Returned call and s/w to schedule. 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 Teams sent to staff to be advise to add XR order if needed prior to apt. Patient aware to come early for XR on main floor. [facility] 11-21-2023 Miscellaneous Notes Returned call and s/w to schedule. 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 Teams sent to staff to be advise to add XR order if needed prior to apt. Patient aware to come early for XR on main floor. Name of Caller: Cadence Contact Reason for Appointment: New Patient appointment. Patient is experiencing foot pain and would like to make an appointment. Please contact to schedule. Office Name: Ortho documented in this encounter [facility] 11-20-2023 Telephone encounter Note Name of Caller: Cadence Contact Reason for Appointment: New Patient appointment. Patient is experiencing foot pain and would like to make an appointment. Please contact to schedule. Office Name: Ortho [facility] 11-15-2023 History of Present illness Narrative A rate supervisor was offered to be present during her exam. The patient: declined Cadence Kamara 11/15/2023 48 y.o. Primary Care Physician: ANN BRADLEY Chief Complaint Patient presents with Gynecologic Exam HPI : Cadence Kamara is a 48 y.o. female here for annual exam __ Gynecologic History: Patient's last menstrual period was 11/15/2023. Taking Prometrium 200 mg 21 days on and 7 days off. Menses have spaced out. February- June amenorrhea. Then had bleeding throughout July. Heavy 4 day cycle in Aug, skipped September, started spotting 3 days ago. Was diagnosed with hypothyroid. 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 Had side effects and stopped it. Has not had labs re-checked. EMB 2020 ENDOMETRIAL BIOPSY - FRAGMENTS OF SECRETORY ENDOMETRIUM NEGATIVE FOR HYPERPLASIA OR MALIGNANCY Contraception: Condoms OB History Para Term AB Living 3 3 2 1 3 SAB IAB Ectopic Multiple Live Births 3 # Outcome Date GA Lbr Matthew/2nd Weight Sex Delivery Anes PTL Lv 3 Term Vag-Spont YESSENIA 2 Term Vag-Spont YESSENIA 1 Vag-Spont YESSENIA Preventative Health Testing: Date of Last Pap Smear: 07/2020 neg pap and HPV Abnormal Pap Smear History: none Date of Last Mammogram: 09/2021 abnormal right. 10/2021 US with probably benign mass. Recommend 6 month repeat US 05/2022 US probably benign. Recommend 6 months right breast US and bilateral dx mammogram 12/2022 Dx bilateral mammo & US : probably benign. Recommend 6 months right breast US Did not have US done d/t still paying on prior imaging. Date of Last Colonoscopy: none- ok with referral Past Medical History: Diagnosis Date Hypothyroidism Past Surgical History: Procedure Laterality Date KNEE SURGERY Right x 2 Family History Problem Relation Name Age of Onset No Known Problems Father Hypertension Mother Social History Socioeconomic History Marital status: Spouse name: Not on file Number of children: Not on file Years of education: Not on file Highest education level: Not on file Occupational History Not on file Tobacco Use Smoking status: Never Smokeless tobacco: Never Substance and Sexual Activity Alcohol use: Not Currently Alcohol/week: 1.0 standard drink of alcohol Types: 1 Standard drinks or equivalent per week Drug use: No Sexual activity: Yes Partners: Male control/protection: None Comment: no control Other Topics Concern Not on file Social History Narrative Not on file Social Determinants of Health Financial Resource Strain: Not on file Food Insecurity: Not on file Transportation Needs: Not on file Physical Activity: Not on file Stress: Not on file Social Connections: Not on file Intimate Partner Violence: Not on file Housing Stability: Not on file MEDICATIONS: Current Outpatient Medications Medication Sig Dispense Refill b complex vitamins capsule Take 1 capsule by mouth daily. cholecalciferol (Vitamin D-3) 50 MCG (2000 UT) capsule Take by mouth. Multiple Vitamin (MULTIVITAMIN ADULT PO) Take by mouth. Probiotic Product (PROBIOTIC DAILY PO) Take by mouth. progesterone (Prometrium) 100 MG capsule Take 2 capsules (200 mg) by mouth daily. 30 capsule 3 No current facility-administered medications for this visit. ALLERGIES: Allergies as of 11/15/2023 (No Known Allergies) REVIEW OF SYSTEMS: CONSTIUTIONAL: No weight change or fatigue CV: No Chest Pain with Exertion, Palpitations, Syncope, Edema, Arrhythmia RESPIRATORY: No SOB or Cough, BREAST: No breast abnormalities or lumps GI: No Indigestion, Heartburn, Nausea, vomiting, Diarrhea, Constipation,Bloating or Bowel Changes; No Bloody Stools or melena : No Dysuria, Hematuria or Nocturia. No Urinary Incontinence or Vaginal Discharge,vaginal bleeding, or dysparuenia. NEURO: No CVA, Migraines,Seizure Hx, or Limb Weakness DERM: No Rash, Itching, Mole Changes or Cancer PSYCH: No Depression, Homicidal thoughts,suicidal thoughts, or anxiety MUSCULOSKELETAL: No Arthralgia or Arthritis HEME and LYMPH :No Lymphoma, Von Willebrand's, Hemophillia or Bleeding History PHYSICAL EXAM: Vitals: 11/15/23 1008 BP: 138/84 Pulse: 107 Weight: 157 lb (71.2 kg) Height: 5' (1.524 m) Body mass index is 30.66 kg/m . DOPE EDGER: BREASTS: normal, no masses, tenderness or skin changes. EXTERNAL GENITALIA: normal female structures VAGINA: normal ruggae, no lesions CERVIX: no lesions, no cervical motion tenderness, normal appearance. UTERUS: normal mobility, nontender, normal size, shape and consistency. ADNEXA: normal, non tender no masses. URETHRA: normal. nontender BLADDER: non tender. PELVIC SUPPORT DEFECTS: Normal support of vagina, uterus, and bladder ANUS/PERINEUM: no hemorrhoids, masses or warts noted. GENERAL EXAM CONSTITUTIONAL: Well developed, well nourished, well groomed. no acute distress NECK: no thyromegaly, supple. CARDIOVASCULAR: normal rate and rhythm, no edema LUNGS: Normal effort, normal lung sounds ABDOMEN:soft, non-tender, non-distended, no hepatospleenomegaly NEUROLOGICAL: no gross motor or sensory deficits noted. . LYMPH NODES: no lymphadenapathy axillary or inguinal. SKIN: intact, dry MUSCULOSKELETAL: normal gait, no cyanosis. PSYCHIATRIC Normal mood and affect, A&O x3. ASSESSMENT/PLAN: Cadence was seen today for gynecologic exam. Diagnoses and all orders for this visit: Encounter for gynecological examination without abnormal finding (Primary) - Pap Smear Abnormal mammogram - Bilateral diagnostic mammogram with tomosynthesis; Future - Right breast US limited; Future Due for bilateral dx mammo in December Abnormal uterine bleeding (AUB) - Ferritin; Future - TSH; Future - T4, free; Future - CBC auto differential; Future - hCG, quantitative - US pelvis transvaginal; Future - Ferritin - TSH - T4, free - CBC auto differential - progesterone (Prometrium) 100 MG capsule; Take 2 capsules (200 mg) by mouth daily. Screening for colon cancer - [facility] Gastroenterology; Future 1 episode of prolonged bleeding, then heavy bleeding. Now seem ok. Will check US and labs. She will continue prometrium as is- helps with other perimenopause symptoms. Follow up depending on testing results. Follow up in about 1 year (around 11/14/2024) for Annual. Routine health maintenance per patients PCP. documented in this encounter [facility] 11-09-2022 History of Present illness Narrative Cadence Kamara 11/09/2022 47 y.o. Primary Care Physician: ANN BRADLEY Chief Complaint Patient presents with Annual Exam HPI : Cadence Kamara is a 47 y.o. female here for annual exam __ Gynecologic History: Patient's last menstrual period was 10/10/2022. Taking Prometrium 200 mg daily until menses. Has regulated periods. Had a little bit of AUB in Jul and Aug but was normal again in September ENDOMETRIAL BIOPSY - FRAGMENTS OF SECRETORY ENDOMETRIUM NEGATIVE FOR HYPERPLASIA OR MALIGNANCY Contraception: Condoms OB History Para Term AB Living 3 3 2 1 3 SAB IAB Ectopic Multiple Live Births 3 # Outcome Date GA Lbr Matthew/2nd Weight Sex Delivery Anes PTL Lv 3 Term Vag-Spont YESSENIA 2 Term Vag-Spont YESSENIA 1 Vag-Spont YESSENIA Preventative Health Testing: Date of Last Pap Smear: 2020 neg pap and HPV Abnormal Pap Smear History: none Date of Last Mammogram: 09/2021 abnormal right. 10/2021 US with probably benign mass. Recommend 6 month repeat US 05/2022 US probably benign. Recommend 6 months right breast US and bilateral dx mammogram Date of Last Colonoscopy: none, ok with referral History reviewed. No pertinent past medical history. Past Surgical History: Procedure Laterality Date KNEE SURGERY Right x 2 Family History Problem Relation Name Age of Onset No Known Problems Father Hypertension Mother Social History Socioeconomic History Marital status: Spouse name: Not on file Number of children: Not on file Years of education: Not on file Highest education level: Not on file Occupational History Not on file Tobacco Use Smoking status: Never Smokeless tobacco: Never Substance and Sexual Activity Alcohol use: Not Currently Alcohol/week: 1.0 standard drink Types: 1 Standard drinks or equivalent per week Drug use: No Sexual activity: Yes Partners: Male Comment: no control Other Topics Concern Not on file Social History Narrative Not on file Social Determinants of Health Financial Resource Strain: Not on file Food Insecurity: Not on file Transportation Needs: Not on file Physical Activity: Not on file Stress: Not on file Social Connections: Not on file Intimate Partner Violence: Not on file Housing Stability: Not on file MEDICATIONS: Current Outpatient Medications Medication Sig Dispense Refill b complex vitamins capsule Take 1 capsule by mouth daily. cholecalciferol (Vitamin D-3) 50 MCG (2000 UT) capsule Take by mouth. Multiple Vitamin (MULTIVITAMIN ADULT PO) Take by mouth. Probiotic Product (PROBIOTIC DAILY PO) Take by mouth. progesterone 200 MG capsule Take 1 capsule (200 mg) by mouth daily. 90 capsule 3 No current facility-administered medications for this visit. ALLERGIES: Allergies as of 11/09/2022 (No Known Allergies) REVIEW OF SYSTEMS: CONSTIUTIONAL: No weight change or fatigue CV: No Chest Pain with Exertion, Palpitations, Syncope, Edema, Arrhythmia RESPIRATORY: No SOB or Cough, BREAST: No breast abnormalities or lumps GI: No Indigestion, Heartburn, Nausea, vomiting, Diarrhea, Constipation,Bloating or Bowel Changes; No Bloody Stools or melena : No Dysuria, Hematuria or Nocturia. No Urinary Incontinence or Vaginal Discharge,vaginal bleeding, or dysparuenia. NEURO: No CVA, Migraines,Seizure Hx, or Limb Weakness DERM: No Rash, Itching, Mole Changes or Cancer PSYCH: No Depression, Homicidal thoughts,suicidal thoughts, or anxiety MUSCULOSKELETAL: No Arthralgia or Arthritis HEME and LYMPH :No Lymphoma, Von Willebrand's, Hemophillia or Bleeding History PHYSICAL EXAM: Vitals: 11/09/22 1003 BP: (!) 160/88 Pulse: 102 Weight: 150 lb (68 kg) Body mass index is 28.81 kg/m . DOPE EDGER: BREASTS: normal, no masses, tenderness or skin changes. EXTERNAL GENITALIA: normal female structures VAGINA: normal ruggae, no lesions CERVIX: no lesions, no cervical motion tenderness, normal appearance. UTERUS: normal mobility, nontender, normal size, shape and consistency. ADNEXA: normal, non tender no masses. URETHRA: normal. nontender BLADDER: non tender. PELVIC SUPPORT DEFECTS: Normal support of vagina, uterus, and bladder ANUS/PERINEUM: no hemorrhoids, masses or warts noted. GENERAL EXAM CONSTITUTIONAL: Well developed, well nourished, well groomed. no acute distress NECK: no thyromegaly, supple. CARDIOVASCULAR: normal rate and rhythm, no edema LUNGS: Normal effort, normal lung sounds ABDOMEN:soft, non-tender, non-distended, no hepatospleenomegaly NEUROLOGICAL: no gross motor or sensory deficits noted. . LYMPH NODES: no lymphadenapathy axillary or inguinal. SKIN: intact, dry MUSCULOSKELETAL: normal gait, no cyanosis. PSYCHIATRIC Normal mood and affect, A&O x3. ASSESSMENT/PLAN: Cadence was seen today for annual exam. Diagnoses and all orders for this visit: Encounter for gynecological examination without abnormal finding (Primary) Abnormal mammogram - Bilateral diagnostic mammogram with tomosynthesis; Future - Right breast US limited; Future Screening for colon cancer - External referral to Gastroenterology; Future Abnormal uterine bleeding (AUB) - progesterone 200 MG capsule; Take 1 capsule (200 mg) by mouth daily. Will monitor and call if any further AUB for US. Follow up in about 1 year (around 11/10/2023) for Annual. Routine health maintenance per patients PCP. documented in this encounter [facility] 11-01-2022 Telephone encounter Note Next visit 11.09.22 RX pended for approval and send. [facility] 11-01-2022 Miscellaneous Notes Next visit 11.09.22 RX pended for approval and send. documented in this encounter [facility] 04-13-2022 Note HNO ID: [id number] Author: TRAY Garcia Service: ? Author Type: Technologist Type: Progress Notes Filed: 04/13/2022 2:04 PM Note Text: Radiology Service Progress Note PATIENT NAME: Cadence Kamara DATE OF SERVICE: April 13, 2022 TIME: 2:03 PM PATIENT IDENTITY VERIFICATION COMPLETED USING TWO (2) IDENTIFIERS: Name and Date of confirmed by patient verbally. FALL SCREENING: Has the patient had 2 falls in the last year or 1 fall with injury or currently using an Ambulatory Assistive Device (Walker, Cane, Wheelchair, Crutches, etc.)? No PATIENT GENDER DATA: Female. status: : No status: NO. PATIENT RELEVANT IMPLANT DATA REVIEWED: Not Applicable RADIOLOGY DEPARTMENT: General X-ray: Exam(s) Completed: Spine X-Ray(s): Sacrum/Coccyx PERIPHERAL IV DATA: Not applicable SIGNED BY: TRAY Garcia April 13, 2022 2:03 PM [facility] 04-13-2022 History of Present illness Narrative Radiology Service Progress Note PATIENT NAME: Cadence Kamara DATE OF SERVICE: April 13, 2022 TIME: 2:03 PM PATIENT IDENTITY VERIFICATION COMPLETED USING TWO (2) IDENTIFIERS: Name and Date of confirmed by patient verbally. FALL SCREENING: Has the patient had 2 falls in the last year or 1 fall with injury or currently using an Ambulatory Assistive Device (Walker, Cane, Wheelchair, Crutches, etc.)? No PATIENT GENDER DATA: Female. status: : No status: NO. PATIENT RELEVANT IMPLANT DATA REVIEWED: Not Applicable RADIOLOGY DEPARTMENT: General X-ray: Exam(s) Completed: Spine X-Ray(s): Sacrum/Coccyx PERIPHERAL IV DATA: Not applicable SIGNED BY: TRAY Garcia April 13, 2022 2:03 PM documented in this encounter [facility] 10-25-2021 Note HNO ID: [id number] Author: TRAY Richards Service: Radiology Author Type: Technologist Type: Progress Notes Filed: 10/25/2021 3:14 PM Note Text: Radiology Service Progress Note PATIENT NAME: Cadence Kamara DATE OF SERVICE: October 25, 2021 TIME: 3:14 PM PATIENT IDENTITY VERIFICATION COMPLETED USING TWO (2) IDENTIFIERS: Name and Date of confirmed by patient verbally. FALL SCREENING: Has the patient had 2 falls in the last year or 1 fall with injury or currently using an Ambulatory Assistive Device (Walker, Cane, Wheelchair, Crutches, etc.)? No PATIENT GENDER DATA: Female. status: : No status: NO. PATIENT RELEVANT IMPLANT DATA REVIEWED: Not Applicable RADIOLOGY DEPARTMENT: Mammography PERIPHERAL IV DATA: Not applicable SIGNED BY: TRAY Richards October 25, 2021 3:14 PM [facility] 10-25-2021 History of Present illness Narrative Radiology Service Progress Note PATIENT NAME: Cadence Kamara DATE OF SERVICE: October 25, 2021 TIME: 3:14 PM PATIENT IDENTITY VERIFICATION COMPLETED USING TWO (2) IDENTIFIERS: Name and Date of confirmed by patient verbally. FALL SCREENING: Has the patient had 2 falls in the last year or 1 fall with injury or currently using an Ambulatory Assistive Device (Walker, Cane, Wheelchair, Crutches, etc.)? No PATIENT GENDER DATA: Female. status: : No status: NO. PATIENT RELEVANT IMPLANT DATA REVIEWED: Not Applicable RADIOLOGY DEPARTMENT: Mammography PERIPHERAL IV DATA: Not applicable SIGNED BY: TRAY Richards October 25, 2021 3:14 PM documented in this encounter [facility] Evaluation note Diagnosis Abnormal uterine and vaginal bleeding, unspecified [facility] Encounter for gynecological examination without abnormal finding- Primary Abnormal mammogram Abnormal mammogram, unspecified Screening for colon cancer Special screening for malignant neoplasms, colon Abnormal uterine bleeding (AUB) [facility] Diagnosis Abnormal mammogram Abnormal mammogram, unspecified [facility] Diagnosis Abnormal mammogram Abnormal mammogram, unspecified [facility] Diagnosis Onset Date Resolution Status Wellness examination acute EBV positive mononucleosis syndrome acute Hypothyroidism acute [facility] Work Phone: Evaluation note* Diagnosis Encounter for gynecological examination without abnormal finding- Primary Abnormal mammogram Abnormal mammogram, unspecified Abnormal uterine bleeding (AUB) Screening for colon cancer Special screening for malignant neoplasms, colon [facility] Diagnosis Stress fracture of left tibia, initial encounter- Primary Hypothyroidism, unspecified type Acute left ankle pain Vitamin D deficiency [facility] Diagnosis Acute left ankle pain [facility]* Diagnosis Chronic fatigue- Primary Other malaise and fatigue Lymphadenopathy, anterior cervical Hypothyroidism, unspecified type documented in this encounter [facility] note* Diagnosis Stress fracture of left tibia with delayed healing, subsequent encounter- Primary documented in this encounter [facility] note* Diagnosis Lymphadenopathy, anterior cervical Hypothyroidism, unspecified type documented in this encounter [facility] note* Diagnosis Stress fracture of left tibia with delayed healing, subsequent encounter- Primary documented in this encounter [facility]* Diagnosis Lymphadenopathy, anterior cervical- Primary documented in this encounter [facility]* Diagnosis Abnormal uterine bleeding (AUB) documented in this encounter [facility] note* Diagnosis Encounter for gynecological examination without abnormal finding- Primary Encounter for screening mammogram for malignant neoplasm of breast Screening for colon cancer Special screening for malignant neoplasms, colon Abnormal uterine bleeding (AUB) Stress fracture of left tibia with routine healing, subsequent encounter documented in this encounter [facility] note* Diagnosis Perimenopause- Primary Symptomatic menopausal or female climacteric states Hypercholesteremia Pure hypercholesterolemia documented in this encounter [facility] note* Diagnosis Encounter for screening mammogram for malignant neoplasm of breast documented in this encounter [facility] Work Phone: Reason for referral (narrative)* Consultation (Routine) - Pending Review Specialty Diagnoses / Procedures Referred By Evelia lynch Referred To Contact Gastroenterology Diagnoses Screening for colon cancer Procedures NE OFFICE/OUTPATIENT [facility] 60-74 MINUTES Kenya Dee MD [address] [place] [address] [address] [place] [address] Ashley Drake MD [address] [facility] [facility] [address] [place] [address] Referral ID Status Reason Start Date Expiration Date Visits Requested Visits Authorized [id number] Pending Review Specialty Services Required 11/09/2022 11/09/2023 [facility] Consultation (Routine) - Pending Review Specialty Diagnoses / Procedures Referred By Evelia lynch Referred To Contact Gastroenterology Diagnoses Screening for colon cancer Procedures NE OFFICE/OUTPATIENT NEW [facility]IGH [facility]DM 60 MINUTES Kenya Dee MD [address] [facility] [address] [place] [address] [facility] [address] [place] [address] Referral ID Status Reason Start Date Expiration Date Visits Requested Visits Authorized [id number] Pending Review Specialty Services Required 11/15/2023 11/14/2024 1 1 [facility] for visit Narrative* Imaging (Routine) - Authorized Specialty Diagnoses / Procedures Referred By Evelia lynch Referred To Contact Radiology Diagnoses Encounter for screening mammogram for malignant neoplasm of breast Procedures BI mammo bilateral screening tomosynthesis [facility], [facility] [address] [place] [address] Phone: tel: fax: Referral ID Status Reason Start Date Expiration Date Visits Requested Visits Authorized [id number] Authorized Perform Procedure 01/17/2025 01/17/2026 1 1 [facility] Work Phone: Summary Purpose Family History No Family History Records FoundNo Family History Records FoundNo Family History Records FoundNo Family History Records FoundNo Family History Records FoundNo Family History Records FoundNo Family History Records FoundNo Family History Records Found Advance Directives No Advanced Directives Records FoundNo Advanced Directives Records FoundNo Advanced Directives Records FoundNo Advanced Directives Records FoundNo Advanced Directives Records FoundNo Advanced Directives Records FoundNo Advanced Directives Records FoundNo Advanced Directives Records Found Chief Complaint and Reason for Visit Chief Complaint Annual wellness exam PE labs to be drawn Reason for Visit Wellness examination EBV positive mononucleosis syndrome Hypothyroidism Additional Source Comments INFORMATION SOURCE (unrecogn ized section and content) DATE CREATED AUTHOR 06/19/2020 [facility] [employer] DATE CREATED AUTHOR AUTHOR'S ORGANIZ ATION 10/27/2021 [facility] DATE CREATED AUTHOR AUTHOR'S ORGANIZ ATION 10/30/2021 [facility] DATE CREATED AUTHOR AUTHOR'S ORGANIZ ATION 11/18/2021 [facility] DATE CREATED AUTHOR AUTHOR'S ORGANIZ ATION 04/30/2022 [facility] DATE CREATED AUTHOR AUTHOR'S ORGANIZ ATION 04/13/2024 [facility] DATE CREATED AUTHOR AUTHOR'S ORGANIZ ATION 12/17/2024 [facility] DATE CREATED AUTHOR AUTHOR'S ORGANIZ ATION 02/15/2025 [facility] Source Comments (unrecognize d section and content) In the event this informatio n is protected by the Federal Confidentiality of Alcohol and Drug Abuse Patient Records regulations: The Federal rules restrict any use of the information to criminally investigate or prosecute any alcohol or drug abuse patient.[facility] the event this information is protected by the Federal Confidentiality of Alcohol and Drug Abuse Patient Records regulations: The Federal rules restrict any use of the information to criminally investigate or prosecute any alcohol or drug abuse patient.[facility] Care Teams (unrecognized sec tion and content) Infectious Diseases Physician Relationship Specialty Start Date End Date Ann Bradley APRN.CUSTODIAL AIDE [address] [place] [address] PCP - General Family Practice 06/02/16 Infectious Diseases Physician Relationship Specialty Start Date End Date Ann Bradley [address] [place], [place] [id number] PCP - General 08/02/21 Infectious Diseases Physician Relationship Specialty Start Date End Date Ann Bradley [address] [place], [place] [id number] PCP - General 08/02/21 Infectious Diseases Physician Relationship Specialty Start Date End Date Ann Bradley [address] [place], [place] [address] PCP - General 08/02/21 Infectious Diseases Physician Relationship Specialty Start Date End Date Ann Bradley [address] [place], [place] [address] PCP - General 08/02/21 Team Status: Inactive Member Role Status Dates Ann Bradley TEAM FACILITATOR, TEAM FACILITATOR-C Attending Provider Active Infectious Diseases Physician Relationship Specialty Start Date End Date Ann Bradley [address] [place] [address] PCP - General 08/02/21 Infectious Diseases Physician Relationship Specialty Start Date End Date Ann Bradley [address] [place] [address] PCP - General 08/02/21 Infectious Diseases Physician Relationship Specialty Start Date End Date Ann Bradley [address] [place] [address] PCP - General 08/02/21 Infectious Diseases Physician Relationship Specialty Start Date End Date Ann Bradley [address] [place] [address] PCP - General 08/02/21 Infectious Diseases Physician Relationship Specialty Start Date End Date Ann Bradley [address] [place], [place] [address] PCP - General 08/02/21 12/13/23 Infectious Diseases Physician Relationship Specialty Start Date End Date Sue Rossivirginia [address] [place] [address] [place] [address] PCP - General Internal Medicine 12/14/23 Infectious Diseases Physician Relationship Specialty Start Date End Date YoanaBhavin DO [address] [place] [address] [place] [address] PCP - General Internal Medicine 12/14/23 Infectious Diseases Physician Relationship Specialty Start Date End Date Ann Bradley [address] [place], [place] [address] PCP - General 08/02/21 12/13/23 Yoana Bhavin, DO [address] [place] [address] [place] [address] PCP - General Internal Medicine 12/14/23 Infectious Diseases Physician Relationship Specialty Start Date End Date YoanaBhavin [address] [place] [address] [place] [address] PCP - General Internal Medicine 12/14/23 Infectious Diseases Physician Relationship Specialty Start Date End Date Sue Rossivirginia [address] [place] [address] [place] [address] PCP - General Internal Medicine 12/14/23 Infectious Diseases Physician Relationship Specialty Start Date End Date Sue Rossivirginia [address] [place] [address] [place] [address] PCP - General Internal Medicine 12/14/23 Infectious Diseases Physician Relationship Specialty Start Date End Date Bhavin Rossi DO [address] [place] [address] [place] [address] PCP - General Internal Medicine 12/14/23 Infectious Diseases Physician Relationship Specialty Start Date End Date Bhavin Rossi DO [address] [place] [address] [place] [address] PCP - General Internal Medicine 12/14/23 Infectious Diseases Physician Relationship Specialty Start Date End Date Generic Provider, No [place] [address] PCP - General [employer] Custom 01/29/25 Infectious Diseases Physician Relationship Specialty Start Date End Date Generic Provider, [place] [address] PCP - General [employer]emaker Custom 01/29/25 Reason for Visit (unrecogniz ed section and content) Reason Comments Med Refill Reason Comments Annual Exam Reason Comments Gynecologic Exam Reason Onset Date Comments Appointment Request 11/20/2023 Reason Comments Ankle Pain Left Reason Comments New Patient results that thyroid levels are high and pt had side effects from levothyroxine in the past Reason Comments Follow-up Reason Onset Date Comments New Patient 11/24/2023 Reason Comments Leg Pain left Follow-up Reason Onset Date Comments Colon Cancer Screening 01/17/2024 Screening program Goals (unrecognized section and content) Goals may be documented in a n alternate section FOR RECORDS PERTAINING TO PATIENTS WHO ARE OR HAVE BEEN ENROLLED IN A CHEMICAL DEPENDENCY/SUBSTANCEABUSE PROGRAM, SOME INFORMATION MAY BE OMITTED. This clinical summary was aggregated from multiple sources. Caution should be exercised in using it in the provision of clinical care. This summary normalizes information from multiple sources, and as a consequence, information in this document may materially change the coding, format and clinical context of patient data. In addition, data may be omitted in some cases. CLINICAL DECISIONS SHOULD BE BASED ON THE PRIMARY CLINICAL RECORDS. [employer] [facility]. provides no warranty or guarantee of the accuracy or completeness of information in this document.
[2025-03-24 22:43] LABS: Hematocrit 42.5 % (37-47); Hemoglobin 14.3 g/dL (12.0-15.0); Immature Granulocytes Count 0.020 X10^3/uL (0.0-0.0); Mean Corp Hgb Conc 33.6 g/dL (32-36); Mean Corpuscular Volume 92.0 fL (81-99); Mean Platelet Vol. 10.4 fl (6.2-12.0); NRBC Flagged by Analyzer 0 % (0-5); Platelet Count 322 K/mm3 (150-450); RBC Distribution Width CV 12.8 % (11.6-14.6); RBC Distribution Width SD 43.1 fl (35.1-43.9); Red Blood Count 4.62 M/mm3 (4.2-5.4); White Blood Count 7.3 K/mm3 (4.4-11.0)
[2025-03-24 23:18] LABS: AST(SGOT) 20 U/L (<=31); Alanine Aminotransfer ALT/SGPT 13 U/L (<=34); Albumin, Serum 4.5 g/dL (3.5-5.0); Alkaline Phosphatase 74 U/L (35-104); Anion Gap 13 (5-15); BUN 16 mg/dL (4-19); BUN/Creat Ratio 22.6 RATIO (10-20); Calcium,Total 10.0 mg/dL (7.6-11.0); Carbon Dioxide 23.2 mmol/L (21.0-32.0); Chloride 101 mmol/L (98-108); Cholesterol 304 mg/dL (<=200); Globulin 3.5 g/dL (2.2-4.2); Glucose 92 mg/dL (70-99); Low Density Lipoprotein Calc. 182 mg/dL; Potassium 4.4 mmol/L (3.3-5.1); Triglycerides 135 mg/dL; Very Low Density Lipoprotein 27 mg/dL (5-40); Vitamin B12 792 pg/mL (180-914); cholesterol:hdl ratio screen 3.20
[2025-03-26 14:16] LABS: Vitamin D,25 Hydroxy 65.8 ng/mL (30-100)
== END | disposition home or self-care (01) ==
LOC: LABSPEC 22:23
PROVIDERS: Visit Provider Nurse Practitioner
DX: Z00.00 Encounter for general adult medical examination without abnormal findings (principal)
CPT/HCPCS: 80053; 80061; 82306; 82607; 84443; 85025